=== PATIENT | male | born 1970 | race Two or more races ===

== ENCOUNTER 2019-02-04 11:56 | Inpatient (IN) | payer OTHER ==
--- NOTE | 2019-02-04 15:45 | HP ---
COWS - Scale Resting Pulse: 0= [place] 80 or Below Sweatin= No chills or Flushing Restless Observation: 1= Difficult to Sit Still Pupil Size: 1= Pupils >than Normal Bone or Joint Aches: 1= Mild Discomfort Runny Nose/ Eye Tearin= Runny Nose/Eyes GI Upset > 30mins: 0= None Tremor Observation: 1= Tremor [place], Not Seen Yawning Observation: 1= 1-2x During Session Anxiety or Irritability: 2=Irritable/Anxious Goose Flesh Skin: 0=Smooth Skin COWS Score: 9 CIWA Score Nausea/Vomitin-No Nausea/No Vomiting Muscle Tremors: 1-None Visible, but [place] Anxiety: 3 Agitation: 0-Normal Activity Paroxysmal Sweats: 2 Orientation: 1-Uncertain about Date Tacttile Disturbances: 1-Very Mild Itch/Numbness Auditory Disturbances: 0-None Visual Disturbances: 0-None Headache: 0-None Present CIWA-Ar Total Score: 8 - Admission Criteria OAS Guidelines: Admission for Medically Managed Detox: Requires at least one of the followin. CIWA greater than 12 2. Seizures within the past 24 hours 3. Delirium tremens within the past 24 hours 4. Hallucinations within the past 24 hours 5. Acute intervention needed for co occurring medical disorder 6. Acute intervention needed for co occurring psychiatric disorder 7. Severe withdrawal that cannot be handled at a lower level of care (continued vomiting, continued diarrhea, abnormal vital signs) requiring intravenous medication and/or fluids 8. Patient presents the following: Acute intervention needed for co-occurring med or psych disorder Admission Criteria Met: Admission criteria met Admission ROS [facility] Chief Complaint: " I relapse, I want detox and go back to my program" Allergies/Adverse Reactions: Allergies Allergy/AdvReac Type Severity Reaction Status Date / Time No Known Allergies Allergy Verified 02/04/19 14:25 History of Present Illness: 48 yo male with hx of nicotine, heroin (nasal), cocaine and alcohol dependence is here seeking detox d/t relapse, self referred. Last detox [facility] two years. Reports was MAT suboxone for about six months and relapse four months ago. Longest period of sobriety three years. PMHX: HDL. Psych : anxiety and depression reports tx with seroquel, non-adherent with meds. Denies suicidal / homicidal ideation. Denies hx of seizures, overdose or blackouts. Others' Prescriptions Patient Name: Colton Smith Date: 1970 Address: [address] [place] [address] Sex: Male Rx Written Rx Dispensed Drug Quantity Days Supply Prescriber Name 09/11/2018 09/11/2018 suboxone 8 mg-2 mg sl film 60 30 Yousuf Garcia MD 08/14/2018 08/14/2018 suboxone 8 mg-2 mg sl film 60 30 RadhaYousuf manzanares MD 07/17/2018 07/17/2018 suboxone 8 mg-2 mg sl film 60 30 RadhaYousuf tolbert MD 06/19/2018 06/19/2018 suboxone 8 mg-2 mg sl film 60 30 RadhaYousuf tolbert MD 05/22/2018 05/22/2018 suboxone 8 mg-2 mg sl film 60 30 RadhaYousuf tolbert MD 04/24/2018 04/24/2018 suboxone 8 mg-2 mg sl film 60 30 RadhaYousuf tolbert MD 03/25/2018 03/25/2018 suboxone 8 mg-2 mg sl film 60 30 RadhaYousuf tolbert MD 02/13/2018 02/21/2018 suboxone 8 mg-2 mg sl film 60 30 RadhaYousuf tolbert MD Exam Limitations: No Limitations - Ebola screening Have you traveled outside of the country in the last 21 days: No Have you had contact with anyone from an Ebola affected area: No Do you have a fever: No - Review of Systems Constitutional: Chills, Diaphoresis, Loss of Appetite, Changes in sleep, Unintentional Wgt. Loss (10 -15 lbs) EENT: reports: Nose Congestion (runny / nose) Respiratory: reports: No Symptoms reported Cardiac: reports: No Symptoms Reported GI: reports: Constipated (last DM two days ago), Poor Appetite, Poor Fluid Intake : reports: No Symptoms Reported Musculoskeletal: reports: Back Pain, Joint Pain Integumentary: reports: Dryness Neuro: reports: Tingling Endocrine: reports: Increased Thirst Hematology: reports: No Symptoms Reported Psychiatric: reports: Orientated x3, Depressed (lost job and drug use) Other Systems: Reviewed and Negative Patient History - Patient Medical History Hx Anemia: No Hx Asthma: No Hx Chronic Obstructive Pulmonary Disease (COPD): No Hx Cancer: No Hx Cardiac Disorders: No Hx Congestive Heart Failure: No Hx Hypertension: No Hx Hypercholesterolemia: Yes (no meds ) Hx Pacemaker: No HX Cerebrovascular Accident: No Hx Seizures: No Hx Dementia: No Hx Diabetes: No Hx Gastrointestinal Disorders: No Hx Liver Disease: No Hx Genitourinary Disorders: No Hx Sexually Transmitted Disorders: No Hx Renal Disease (ESRD): No Hx Thyroid Disease: No Hx Human Immunodeficiency Virus (HIV): No Hx Hepatitis C: No Hx Depression: Yes Hx Suicide Attempt: No Hx Bipolar Disorder: No Hx Schizophrenia: No - Patient Surgical History Past Surgical History: No Hx Neurologic Surgery: No Hx Cataract Extraction: No Hx Cardiac Surgery: No Hx Lung Surgery: No Hx Breast Surgery: No Hx Breast Biopsy: No Hx Abdominal Surgery: No Hx Appendectomy: No Hx Cholecystectomy: No Hx Genitourinary Surgery: No Hx Section: No Hx Orthopedic Surgery: No Anesthesia Reaction: No - PPD History Previous Implant?: No Documented Results: Negative w/o proof Date: 09/01/13 Results: 0 mm PPD to be Administered?: Yes - Smoking Cessation Smoking history: Current every day smoker Have you smoked in the past 12 months: Yes Aproximately how many cigarettes per day: 20 Cigars Per Day: 0 Hx Chewing Tobacco Use: No Initiated information on smoking cessation: Yes 'Breaking Loose' booklet given: 02/04/19 - Substance & Tx. History Hx Alcohol Use: Yes Hx Substance Use: Yes Substance Use Type: Alcohol, Cocaine, Heroin, Marijuana Hx Substance Use Treatment: Yes (Last detox [facility] two years) - Substances abused Heroin Substance route: Inhalation Frequency: Daily Amount used: 1 bundle Age of first use: 15 Date of last use: 02/04/19 Alcohol Substance route: Oral Frequency: Daily Amount used: 2 pt. rum + 2 quarts beer ( 40 oz bottles). Age of first use: 15 Date of last use: 02/03/19 Cocaine Substance route: Smoking Frequency: Daily Amount used: $50 -60 Age of first use: 15 Date of last use: 02/03/19 Marijuana/Hashish Substance route: Smoking Frequency: Daily Amount used: $10 Age of first use: 14 Date of last use: 02/03/19 Family Disease History - Family Disease History Family Disease History: Other: Father (alcoholism ), Mother (alcohol ) Admission Physical Exam [facility] - Vital Signs Vital Signs: Vital Signs - 24 hr 02/04/19 14:22 Temperature 98.2 F Pulse Rate 52 L Respiratory 18 Rate Blood Pressure 102/67 - Physical General Appearance: Yes: Appropriately Dressed, Thin, Sweating, Anxious HEENTM: Yes: EOMI, Hearing grossly Normal, Normal ENT Inspection, Pharynx Normal , Rhinorrhea, Other (pupil = 4mm) Respiratory: Yes: Chest Non-Tender, Lungs Clear, Normal Breath Sounds, No Respiratory Distress, No Accessory Muscle Use Neck: Yes: Within Normal Limits Breast: Yes: Breast Exam Deferred Cardiology: Yes: Regular Rhythm, Regular Rate Musculoskeletal: Yes: Back pain - Diagnostic (1) Cannabis dependence Current Visit: Yes Status: Acute (2) Alcohol dependence with uncomplicated withdrawal Current Visit: Yes Status: Acute (3) Opioid dependence with withdrawal Current Visit: Yes Status: Acute (4) Back pain Current Visit: Yes Status: Acute Qualifiers: Back pain location: low back pain Chronicity: acute Back pain laterality : midline (5) Cocaine dependence Current Visit: Yes Status: Active Cleared for Admission [facility] - Detox or Rehab [facility] Level of Care: Medically Managed Detox Regimen/Protocol: Methadone/Librium Breathalyzer - Breathalyzer Breathalyzer: 0 Urine Drug Screen - Test Device Lot number: [id number] Expiration date: 01/31/20 - Control Is test valid?: Yes - Results Drug screen NEGATIVE: No Urine drug screen results: THC-Marijuana, BRIJESH-Cocaine, FEN-Fentanyl, MOP-Opiates Inpatient Rehab Admission - Rehab Decision to Admit Inpatient rehab admission?: No
[2019-02-04] MEDS ORDERED: MAGNESIUM CITRATE 300 ML BOTTLE PO PRN (16:08)
[2019-02-04] MEDS ORDERED: MENTHOL/PHENOL 1 EACH UD MM PRN (16:08)
[2019-02-04] MEDS ORDERED: MAG HYDROX/AL HYDROX/SIMETH 30 ML UNIT-DOSE CUP PO PRN (16:08)
[2019-02-04] MEDS ORDERED: MAGNESIUM HYDROX 2400MG/30ML ORAL SUSPENSION 30 ML CUP PO PRN (16:08)
[2019-02-04] MEDS ORDERED: IBUPROFEN 400 MG TABLET (FP) PO PRN (16:08)
[2019-02-04] MEDS ORDERED: BISMUTH SUBSALICYLATE 524 MG/30 ML UD PO PRN (16:08)
[2019-02-04] MEDS ORDERED: NICOTINE POLACRILEX 2 MG GUM BUC PRN (16:08)
[2019-02-04] MEDS ORDERED: ACETAMINOPHEN 325 MG TABLET (FP) PO PRN ×2 (16:08)
[2019-02-04] MEDS: chlordiazePOXIDE HCL 10 MG CAPSULE PO PRN (18:15)
[2019-02-04] MEDS: THIAMINE HCL 100 MG TABLET (FP) PO SCH (22:11)
[2019-02-04] MEDS: chlordiazePOXIDE HCL 25 MG CAPSULE PO SCH (22:11)
[2019-02-04] MEDS: MELATONIN 5 MG TABLETS PO PRN (22:12)
[2019-02-04] MEDS ORDERED: METHADONE HCL 10 MG TABLET (FOR DETOX USE ONLY) PO ONE (23:00)
[2019-02-04 23:30] LABS: EPI CELLS 1.7 /HPF (0-5); PH,URINE 5.5 (5.0-8.0); URINE APPEARANCE CLEAR; URINE BACTERIA 1.7 /hpf (NEGATIVE); URINE BILIRUBIN NEGATIVE (NEGATIVE); URINE CASTS 3 /hpf (0-8); URINE COLOR YELLOW; URINE GLUCOSE (UA) NEGATIVE (NEGATIVE); URINE KETONE NEGATIVE (NEGATIVE); URINE LEUK ESTERASE 1+ (NEGATIVE); URINE NITRITE NEGATIVE (NEGATIVE); URINE PROTEIN NEGATIVE (NEGATIVE); URINE RBC 1 /hpf (0-4); URINE WBC 17 /hpf (0-5)
[2019-02-05] MEDS: chlordiazePOXIDE HCL 25 MG CAPSULE PO SCH ×2 (05:53→14:58)
[2019-02-05] MEDS ORDERED: METHADONE HCL 5 MG TABLET (FOR DETOX USE ONLY) PO ONE (10:00)
[2019-02-05] MEDS: PRENATAL VITAMINS W/ FOLIC ACID TABLET (FP) PO SCH (10:04)
[2019-02-05] MEDS: NICOTINE 21 MG/24 HOURS TOPICAL PATCH TD SCH (10:05)
[2019-02-05] MEDS: chlordiazePOXIDE HCL 10 MG CAPSULE PO PRN ×2 (10:08→23:34)
[2019-02-05 10:24] LABS: HEMATOCRIT 43.5 % (35.4-49); HEMOGLOBIN 14.5 GM/dL (11.7-16.9); MCH 29.6 pg (25.7-33.7); MCHC 33.3 g/dl (32.0-35.9); MEAN CELL VOLUME 88.9 fl (80-96); MEAN PLT VOLUME 9.6 fl (7.5-11.1); PLATELET COUNT 190 K/MM3 (134-434); RBC 4.89 M/mm3 (4.00-5.60); RDW 13.8 % (11.9-15.9)
[2019-02-05 10:35] LABS: ALBUMIN 3.8 g/dl (3.4-5.0); ALK PHOS 49 U/L (45-117); ANION GAP 3 MMOL/L (8-16); BILIRUBIN,TOTAL 0.3 mg/dL (0.2-1); BLOOD UREA NITROGEN 15 mg/dL (7-18); CHLORIDE 106 mmol/L (98-107); CO2 31 mmol/L (21-32); GLUCOSE,RANDOM 94 mg/dL (74-106); POTASSIUM 4.1 mmol/L (3.5-5.1); SGOT/AST 10 U/L (15-37); SGPT/ALT 18 U/L (13-61); SODIUM 140 mmol/L (136-145); TOT PROT 6.6 g/dl (6.4-8.2)
--- NOTE | 2019-02-05 11:35 | CONSULT ---
[facility] Psychiatric Consult - Data Date of interview: 02/05/19 Admission source: [facility] Identifying data: Readmission to [facility] for this 48 y/o male self- referred for detoxification treatment (heroin, alcohol, cannabis). Examined on 3 . patient is , no children, domiciled, unemployed and supported on welfare. Substance Abuse History: Confirmed by the patient in this session. Details in current [facility] report : Smoking history: Current every day smoker. Have you smoked in the past 12 months: Yes. Aproximately how many cigarettes per day: 20. Cigars Per Day: 0. Hx Chewing Tobacco Use: No. Initiated information on smoking cessation: Yes. 'Breaking Loose' booklet given: 02/04/19. - Substance & Tx. History. Hx Alcohol Use: Yes. Hx Substance Use: Yes. Substance Use Type : Alcohol, Cocaine, Heroin, Marijuana. Hx Substance Use Treatment: Yes (Last detox [facility] two years). - Substances abused. Heroin. Substance route: Inhalation. Frequency: Daily. Amount used: 1 bundle. Age of first use: 15. Date of last use: 02/04/19. Alcohol. Substance route: Oral. Frequency: Daily. Amount used: 2 pt. rum + 2 quarts beer ( 40 oz bottles). Age of first use: 15. Date of last use: 02/03/19. Cocaine. Substance route: Smoking. Frequency: Daily. Amount used: $50 -60. Age of first use: 15. Date of last use: 02/03/19. Marijuana/Hashish. Substance route: Smoking. Frequency: Daily. Amount used: $10. Age of first use: 14. Date of last use: 02/03/19. F Medical History: Dyslipidemia. Psychiatric History: Patient denies history of psychiatric hospitalizations. According to records, it appears that this patient started seeing a psychiatrist , as a child, to address behavioral disturbances. Diagnosed initially with ADHD and treated, during childhood, with psychostimulants or seroquel (patient is not sure). Mr Smith reports that, years ago, he went to [facility] for substance abuse treatment and got diagnosed with MDD and Anxiety Disorder. At the time, the patient was reportedly medicated with seroquel 200 mg/hs. Last taken in August 2018. Lost to follow-up until this [facility] visit. Patient denies history of suicide attempts. Physical/Sexual Abuse/Trauma History: Patient denies. Additional Comment: Urine drug screen results: THC-Marijuana, BRIJESH-Cocaine, FEN- Fentanyl, MOP-Opiates. Noted. Mental Status Exam - Mental Status Exam Alert and Oriented to: Time, Place, Person Cognitive Function: Good Patient Appearance: Well Groomed Mood: Nervous, Withdrawn, Anxious Affect: Mood Congruent, Constricted Patient Behavior: Fatigued, Appropriate, Cooperative Speech Pattern: Clear, Appropriate Voice Loudness: Normal Thought Process: Intact, Goal Oriented Thought Disorder: Not Present Hallucinations: Denies Suicidal Ideation: Denies Homicidal Ideation: Denies Insight/Judgement: Poor Sleep: Poorly, Difficulty falling asleep Appetite: Good Muscle strength/Tone: Normal Gait/Station: Normal Psychiatric Findings - Problem List ([place] 1, 2,3) (1) Alcohol dependence with uncomplicated withdrawal Current Visit: Yes Status: Acute (2) Opioid dependence with withdrawal Current Visit: Yes Status: Acute (3) Cocaine dependence Current Visit: Yes Status: Chronic (4) Cannabis dependence Current Visit: Yes Status: Chronic (5) Nicotine dependence Current Visit: Yes Status: Chronic (6) Substance induced mood disorder Current Visit: Yes Status: Chronic (7) Insomnia Current Visit: Yes Status: Chronic (8) Non-compliance Current Visit: Yes Status: Chronic - Initial Treatment Plan Initial Treatment Plan: Psychoeducation. Sleep hygiene. Detoxification in progress. Support. AA/NA meetings. Groups. Seroquel 50 mg po hs (patient's specific request). Side effects/benefits discussed with the patient. Consent ( verbal) granted to MD. Dolan.
--- NOTE | 2019-02-05 12:24 | EKG ---
Test Reason : Blood Pressure : / mmHG Vent. Rate : 047 BPM Atrial Rate : 047 BPM P-R Int : 156 ms QRS Dur : 090 ms QT Int : 430 ms P-R-T Axes : 071 061 056 degrees QTc Int : 380 ms SINUS BRADYCARDIA OTHERWISE NORMAL ECG NO PREVIOUS ECGS AVAILABLE Confirmed by ROSA CARDOZA, JULIA ([id number]) on 02/05/2019 12:24:50 PM Referred By: Confirmed By:JULIA LEE MD
--- NOTE | 2019-02-05 17:06 | PN ---
S CIWA - CIWA Score Nausea/Vomitin-No Nausea/No Vomiting Muscle Tremors: None Anxiety: 3 Agitation: 2 Paroxysmal Sweats: 3 Orientation: 0-Oriented Tacttile Disturbances: 0-None Auditory Disturbances: 1-Very Mild Visual Disturbances: 3-Moderate Sensitivity Headache: 0-None Present CIWA-Ar Total Score: 12 BHS COWS - Scale Resting Pulse: 1= [place] 81-100 Sweatin= Chills/Flushing Restless Observation: 1= Difficult to Sit Still Pupil Size: 0= Normal to Room Light Bone or Joint Aches: 2= Severe Diffuse Aches Runny Nose/ Eye Tearin= None GI Upset > 30mins: 0= None Tremor Observation of Outstretched Hands: 0= None Yawning Observation: 1= 1-2x During Session Anxiety or Irritability: 2=Irritable/Anxious Goose Flesh Skin: 3=Piloerection COWS Score: 11 S Progress Note (SOAP) Subjective: Sweating, Body Aches, Constipation. Objective: PATIENT A & O X 3, OBSERVED AMBULATING ON UNIT. IN NO ACUTE DISTRESS. 02/05/19 17:05 Vital Signs Temperature 98.2 F 02/05/19 14:31 Pulse Rate 53 L 02/05/19 14:31 Respiratory Rate 18 02/05/19 14:31 Blood Pressure 109/67 02/05/19 14:31 O2 Sat by Pulse Oximetry (%) Laboratory Tests 02/04/19 02/05/19 02/05/19 18:50 07:00 07:00 WBC 4.0 RBC 4.89 Hgb 14.5 Hct 43.5 MCV 88.9 MCH 29.6 MCHC 33.3 RDW 13.8 Plt Count 190 MPV 9.6 Sodium 140 Potassium 4.1 Chloride 106 Carbon Dioxide 31 Anion Gap 3 L BUN 15 Creatinine 1.0 Creat Clearance w eGFR 79.09 Random Glucose 94 Calcium 9.0 Total Bilirubin 0.3 AST 10 L ALT 18 Alkaline Phosphatase 49 Total Protein 6.6 Albumin 3.8 Urine Color Yellow Urine Appearance Clear Urine pH 5.5 Ur Specific [place] 1.023 Urine Protein Negative Urine Glucose (UA) Negative Urine Ketones Negative Urine Blood Negative Urine Nitrite Negative Urine Bilirubin Negative Urine Urobilinogen 1.0 Ur Leukocyte Esterase 1+ H Urine WBC (Auto) 17 Urine RBC (Auto) 1 Urine Casts (Auto) 3 U Epithel Cells (Auto) 1.7 Urine Bacteria (Auto) 1.7 RPR Titer HIV 1&2 Antibody Screen HIV P24 Antigen 02/05/19 02/05/19 07:00 07:00 WBC RBC Hgb Hct MCV MCH MCHC RDW Plt Count MPV Sodium Potassium Chloride Carbon Dioxide Anion Gap BUN Creatinine Creat Clearance w eGFR Random Glucose Calcium Total Bilirubin AST ALT Alkaline Phosphatase Total Protein Albumin Urine Color Urine Appearance Urine pH Ur Specific [place] Urine Protein Urine Glucose (UA) Urine Ketones Urine Blood Urine Nitrite Urine Bilirubin Urine Urobilinogen Ur Leukocyte Esterase Urine WBC (Auto) Urine RBC (Auto) Urine Casts (Auto) U Epithel Cells (Auto) Urine Bacteria (Auto) RPR Titer Nonreactive HIV 1&2 Antibody Screen Negative HIV P24 Antigen Negative LABS NOTED. Assessment: 02/05/19 17:05 WITHDRAWAL SYMPTOMS. Plan: CONTINUE DETOX. INCREASE DAILY PO FLUID INTAKE.
[2019-02-05] MEDS: chlordiazePOXIDE 5 MG CAPSULE PO SCH (21:16)
[2019-02-05] MEDS: QUEtiapine FUMARATE 50 MG TABLET PO SCH (22:16)
[2019-02-05] MEDS: THIAMINE HCL 100 MG TABLET (FP) PO SCH (22:16)
[2019-02-05] MEDS: MELATONIN 5 MG TABLETS PO PRN (23:34)
[2019-02-05] MEDS: METHOCARBAMOL 500 MG TABLET PO PRN (23:34)
[2019-02-05] MEDS: cloNIDine HCL 0.1 MG TABLET PO PRN (23:35)
--- NOTE | 2019-02-06 00:01 | PN ---
BHS Progress Note Note: SEEN FOR C/O WORSENING WITHDRAWAL SX'S. C/O IRRITABILITY, SHAKES, SWEATS, RESTLESSNESS. "IM DOPE SICK" Last Vital Signs Temp Pulse Resp BP Pulse Ox 97.3 F L 58 L 18 114/69 02/05/19 22:24 02/05/19 22:24 02/05/19 22:24 02/05/19 22:24 CLIENT AWAKE /ALERT PACING UNIT, YELLING, RESTLESS, IRRITABLE PERRLA A- WITHDRAWAL SX'S P- METHADONE 5 MG PO NOW X 1 CONT TO MONITOR CLINICALLY
[2019-02-06] MEDS ORDERED: METHADONE HCL 5 MG TABLET (FOR DETOX USE ONLY) PO ONE (00:15)
[2019-02-06] MEDS: chlordiazePOXIDE 5 MG CAPSULE PO SCH ×2 (05:27→14:44)
[2019-02-06] MEDS ORDERED: METHADONE HCL 10 MG TABLET (FOR DETOX USE ONLY) PO ONE (10:00)
[2019-02-06] MEDS: METHOCARBAMOL 500 MG TABLET PO PRN (10:04)
[2019-02-06] MEDS: cloNIDine HCL 0.1 MG TABLET PO PRN (10:04)
[2019-02-06] MEDS: NICOTINE 21 MG/24 HOURS TOPICAL PATCH TD SCH (10:04)
[2019-02-06] MEDS: PRENATAL VITAMINS W/ FOLIC ACID TABLET (FP) PO SCH (10:04)
--- NOTE | 2019-02-06 16:03 | PN ---
S CIWA - CIWA Score Nausea/Vomitin-No Nausea/No Vomiting Muscle Tremors: None Anxiety: 4-Mod. Anxious/Guarded Agitation: 3 Paroxysmal Sweats: 3 Orientation: 0-Oriented Tacttile Disturbances: 2-Mild Itch/Numbness/Burn Auditory Disturbances: 0-None Visual Disturbances: 2-Mild Sensitivity Headache: 0-None Present CIWA-Ar Total Score: 14 S COWS - Scale Resting Pulse: 0= [place] 80 or Below Sweatin= Chills/Flushing Restless Observation: 1= Difficult to Sit Still Pupil Size: 0= Normal to Room Light Bone or Joint Aches: 2= Severe Diffuse Aches Runny Nose/ Eye Tearin= None GI Upset > 30mins: 0= None Tremor Observation of Outstretched Hands: 0= None Yawning Observation: 1= 1-2x During Session Anxiety or Irritability: 4=Extreme Anxiety Goose Flesh Skin: 3=Piloerection COWS Score: 12 S Progress Note (SOAP) Subjective: Sweating, Body Aches, Anxious, Restless. Objective: PATIENT A & O X 3, OBSERVED AMBULATING ON UNIT. IN NO ACUTE DISTRESS. 02/06/19 16:01 Vital Signs Temperature 98.7 F 02/06/19 13:38 Pulse Rate 59 L 02/06/19 13:38 Respiratory Rate 18 02/06/19 13:38 Blood Pressure 100/65 02/06/19 13:38 O2 Sat by Pulse Oximetry (%) Laboratory Tests 02/04/19 02/05/19 02/05/19 18:50 07:00 07:00 WBC 4.0 RBC 4.89 Hgb 14.5 Hct 43.5 MCV 88.9 MCH 29.6 MCHC 33.3 RDW 13.8 Plt Count 190 MPV 9.6 Sodium 140 Potassium 4.1 Chloride 106 Carbon Dioxide 31 Anion Gap 3 L BUN 15 Creatinine 1.0 Creat Clearance w eGFR 79.09 Random Glucose 94 Calcium 9.0 Total Bilirubin 0.3 AST 10 L ALT 18 Alkaline Phosphatase 49 Total Protein 6.6 Albumin 3.8 Urine Color Yellow Urine Appearance Clear Urine pH 5.[address] [place] 1.023 Urine Protein Negative Urine Glucose (UA) Negative Urine Ketones Negative Urine Blood Negative Urine Nitrite Negative Urine Bilirubin Negative Urine Urobilinogen 1.0 Ur Leukocyte Esterase 1+ H Urine WBC (Auto) 17 Urine RBC (Auto) 1 Urine Casts (Auto) 3 U Epithel Cells (Auto) 1.7 Urine Bacteria (Auto) 1.7 RPR Titer HIV 1&2 Antibody Screen HIV P24 Antigen 02/05/19 02/05/19 07:00 07:00 WBC RBC Hgb Hct MCV MCH MCHC RDW Plt Count MPV Sodium Potassium Chloride Carbon Dioxide Anion Gap BUN Creatinine Creat Clearance w eGFR Random Glucose Calcium Total Bilirubin AST ALT Alkaline Phosphatase Total Protein Albumin Urine Color Urine Appearance Urine pH Ur Specific [place] Urine Protein Urine Glucose (UA) Urine Ketones Urine Blood Urine Nitrite Urine Bilirubin Urine Urobilinogen Ur Leukocyte Esterase Urine WBC (Auto) Urine RBC (Auto) Urine Casts (Auto) U Epithel Cells (Auto) Urine Bacteria (Auto) RPR Titer Nonreactive HIV 1&2 Antibody Screen Negative HIV P24 Antigen Negative LABS NOTED. Assessment: 02/06/19 16:01 WITHDRAWAL SYMPTOMS. Plan: CONTINUE DETOX. INCREASE DAILY PO FLUID INTAKE. PRN ROBAXIN FOR BODY ACHES / MUSCLE SPASMS. DUE TO SEVERITY OF WITHDRAWAL SYMPTOMS, PATIENT GRANTED ADDITIONAL DAY FOR DETOX ADMISSION, SO THAT HE WILL BE DISCHARGED FROM DETOX UNIT ON 02/08/2019.
[2019-02-06] MEDS ORDERED: chlordiazePOXIDE HCL 10 MG CAPSULE PO PRN (21:00)
[2019-02-06] MEDS: chlordiazePOXIDE HCL 10 MG CAPSULE PO SCH (22:13)
[2019-02-06] MEDS: QUEtiapine FUMARATE 50 MG TABLET PO SCH (22:13)
[2019-02-06] MEDS: THIAMINE HCL 100 MG TABLET (FP) PO SCH (22:13)
[2019-02-07] MEDS: chlordiazePOXIDE HCL 10 MG CAPSULE PO SCH ×3 (05:21→22:16)
[2019-02-07] MEDS ORDERED: METHADONE HCL 5 MG TABLET (FOR DETOX USE ONLY) PO ONE (06:00)
[2019-02-07] MEDS ORDERED: METHADONE HCL 10 MG TABLET (FOR DETOX USE ONLY) PO ONE (10:00)
[2019-02-07] MEDS: PRENATAL VITAMINS W/ FOLIC ACID TABLET (FP) PO SCH (10:16)
[2019-02-07] MEDS: NICOTINE 21 MG/24 HOURS TOPICAL PATCH TD SCH (10:17)
--- NOTE | 2019-02-07 14:41 | PN ---
[facility] CIWA - CIWA Score Nausea/Vomitin-Mild Nausea/No Vomiting Muscle Tremors: 2 Anxiety: 2 Agitation: 2 Paroxysmal Sweats: 1-Minimal Palms Moist Orientation: 0-Oriented Tacttile Disturbances: 0-None Auditory Disturbances: 0-None Visual Disturbances: 0-None Headache: 1-Very Mild CIWA-Ar Total Score: 9 BHS COWS - Scale Resting Pulse: 0= [place] 80 or Below Sweatin= Chills/Flushing Restless Observation: 0= Sits Still Pupil Size: 0= Normal to Room Light Bone or Joint Aches: 1= Mild Discomfort Runny Nose/ Eye Tearin= Nasal Congestion GI Upset > 30mins: 1= Stomach Cramp Tremor Observation of Outstretched Hands: 1= Tremor [place], Not Seen Yawning Observation: 1= 1-2x During Session Anxiety or Irritability: 1=Feels Anxious/Irritable Goose Flesh Skin: 0=Smooth Skin COWS Score: 7 [facility] Progress Note (SOAP) Subjective: feeling better today had methadone and librium today resting on bed tolerated food well Objective: 02/07/19 14:42 Vital Signs Temperature 97.3 F L 02/07/19 09:59 Pulse Rate 57 L 02/07/19 09:59 Respiratory Rate 16 02/07/19 09:59 Blood Pressure 102/60 02/07/19 09:59 O2 Sat by Pulse Oximetry (%) Laboratory Last Values WBC 4.0 K/mm3 (4.0-10.0) 02/05/19 07:00 RBC 4.89 M/mm3 (4.00-5.60) 02/05/19 07:00 Hgb 14.5 GM/dL (11.7-16.9) 02/05/19 07:00 Hct 43.5 % (35.4-49) 02/05/19 07:00 MCV 88.9 fl (80-96) 02/05/19 07:00 MCH 29.6 pg (25.7-33.7) 02/05/19 07:00 MCHC 33.3 g/dl (32.0-35.9) 02/05/19 07:00 RDW 13.8 % (11.9-15.9) 02/05/19 07:00 Plt Count 190 K/MM3 (134-434) 02/05/19 07:00 MPV 9.6 fl (7.5-11.1) 02/05/19 07:00 Sodium 140 mmol/L (136-145) 02/05/19 07:00 Potassium 4.1 mmol/L (3.5-5.1) 02/05/19 07:00 Chloride 106 mmol/L (98-107) 02/05/19 07:00 Carbon Dioxide 31 mmol/L (21-32) 02/05/19 07:00 Anion Gap 3 MMOL/L (8-16) L 02/05/19 07:00 BUN 15 mg/dL (7-18) 02/05/19 07:00 Creatinine 1.0 mg/dL (0.55-1.3) 02/05/19 07:00 Creat Clearance w eGFR 79.09 (>60) 02/05/19 07:00 Random Glucose 94 mg/dL (74-106) 02/05/19 07:00 Calcium 9.0 mg/dL (8.5-10.1) 02/05/19 07:00 Total Bilirubin 0.3 mg/dL (0.2-1) 02/05/19 07:00 AST 10 U/L (15-37) L 02/05/19 07:00 ALT 18 U/L (13-61) 02/05/19 07:00 Alkaline Phosphatase 49 U/L (45-117) 02/05/19 07:00 Total Protein 6.6 g/dl (6.4-8.2) 02/05/19 07:00 Albumin 3.8 g/dl (3.4-5.0) 02/05/19 07:00 Urine Color Yellow 02/04/19 18:50 Urine Appearance Clear 02/04/19 18:50 Urine pH 5.5 (5.0-8.0) 02/04/19 18:50 Ur Specific [place] 1.023 (1.010-1.035) 02/04/19 18:50 Urine Protein Negative (NEGATIVE) 02/04/19 18:50 Urine Glucose (UA) Negative (NEGATIVE) 02/04/19 18:50 Urine Ketones Negative (NEGATIVE) 02/04/19 18:50 Urine Blood Negative (NEGATIVE) 02/04/19 18:50 Urine Nitrite Negative (NEGATIVE) 02/04/19 18:50 Urine Bilirubin Negative (NEGATIVE) 02/04/19 18:50 Urine Urobilinogen 1.0 mg/dL (0.2-1.0) 02/04/19 18:50 Ur Leukocyte Esterase 1+ (NEGATIVE) H 02/04/19 18:50 Urine WBC (Auto) 17 /hpf (0-5) 02/04/19 18:50 Urine RBC (Auto) 1 /hpf (0-4) 02/04/19 18:50 Urine Casts (Auto) 3 /hpf (0-8) 02/04/19 18:50 U Epithel Cells (Auto) 1.7 /HPF (0-5) 02/04/19 18:50 Urine Bacteria (Auto) 1.7 /hpf (NEGATIVE) 02/04/19 18:50 RPR Titer Nonreactive (NONREACTIVE) 02/05/19 07:00 HIV 1&2 Antibody Screen Negative 02/05/19 07:00 HIV P24 Antigen Negative 02/05/19 07:00 lab noted Assessment: 02/07/19 14:43 withdrawal sx Plan: continue detox
[2019-02-07] MEDS: QUEtiapine FUMARATE 50 MG TABLET PO SCH (22:16)
[2019-02-07] MEDS: MELATONIN 5 MG TABLETS PO PRN (22:16)
[2019-02-07] MEDS: THIAMINE HCL 100 MG TABLET (FP) PO SCH (22:16)
[2019-02-08] MEDS ORDERED: METHADONE HCL 5 MG TABLET (FOR DETOX USE ONLY) PO ONE (06:00)
[2019-02-08 09:25] VITALS: BP 101/63; PULSE 82; TEMP 97.3
[2019-02-08] MEDS: NICOTINE 21 MG/24 HOURS TOPICAL PATCH TD SCH (10:26)
[2019-02-08] MEDS: PRENATAL VITAMINS W/ FOLIC ACID TABLET (FP) PO SCH (10:27)
--- NOTE | 2019-02-08 14:54 | DS ---
[facility] Detox Discharge Summary Admission Date: 02/04/19 Discharge Date: 02/08/19 - History Present History: Alcohol Dependence, Opioid Dependence Additional Comments: 48 years old male admitted on 02/04/19 for alcohol and opiate withdrawal stabilization completed detox regimen aftercare [facility] Physical Exam Results Vital Signs: Vital Signs Temperature 97.3 F L 02/08/19 09:24 Pulse Rate 82 02/08/19 09:24 Respiratory Rate 18 02/08/19 09:24 Blood Pressure 101/63 02/08/19 09:24 O2 Sat by Pulse Oximetry (%) Pertinent Admission Physical Exam Findings: alcohol and opiate withdrawal sx Laboratory Last Values WBC 4.0 K/mm3 (4.0-10.0) 02/05/19 07:00 RBC 4.89 M/mm3 (4.00-5.60) 02/05/19 07:00 Hgb 14.5 GM/dL (11.7-16.9) 02/05/19 07:00 Hct 43.5 % (35.4-49) 02/05/19 07:00 MCV 88.9 fl (80-96) 02/05/19 07:00 MCH 29.6 pg (25.7-33.7) 02/05/19 07:00 MCHC 33.3 g/dl (32.0-35.9) 02/05/19 07:00 RDW 13.8 % (11.9-15.9) 02/05/19 07:00 Plt Count 190 K/MM3 (134-434) 02/05/19 07:00 MPV 9.6 fl (7.5-11.1) 02/05/19 07:00 Sodium 140 mmol/L (136-145) 02/05/19 07:00 Potassium 4.1 mmol/L (3.5-5.1) 02/05/19 07:00 Chloride 106 mmol/L (98-107) 02/05/19 07:00 Carbon Dioxide 31 mmol/L (21-32) 02/05/19 07:00 Anion Gap 3 MMOL/L (8-16) L 02/05/19 07:00 BUN 15 mg/dL (7-18) 02/05/19 07:00 Creatinine 1.0 mg/dL (0.55-1.3) 02/05/19 07:00 Creat Clearance w eGFR 79.09 (>60) 02/05/19 07:00 Random Glucose 94 mg/dL (74-106) 02/05/19 07:00 Calcium 9.0 mg/dL (8.5-10.1) 02/05/19 07:00 Total Bilirubin 0.3 mg/dL (0.2-1) 02/05/19 07:00 AST 10 U/L (15-37) L 02/05/19 07:00 ALT 18 U/L (13-61) 02/05/19 07:00 Alkaline Phosphatase 49 U/L (45-117) 02/05/19 07:00 Total Protein 6.6 g/dl (6.4-8.2) 02/05/19 07:00 Albumin 3.8 g/dl (3.4-5.0) 02/05/19 07:00 Urine Color Yellow 02/04/19 18:50 Urine Appearance Clear 02/04/19 18:50 Urine pH 5.5 (5.0-8.0) 02/04/19 18:50 Ur Specific [place] 1.023 (1.010-1.035) 02/04/19 18:50 Urine Protein Negative (NEGATIVE) 02/04/19 18:50 Urine Glucose (UA) Negative (NEGATIVE) 02/04/19 18:50 Urine Ketones Negative (NEGATIVE) 02/04/19 18:50 Urine Blood Negative (NEGATIVE) 02/04/19 18:50 Urine Nitrite Negative (NEGATIVE) 02/04/19 18:50 Urine Bilirubin Negative (NEGATIVE) 02/04/19 18:50 Urine Urobilinogen 1.0 mg/dL (0.2-1.0) 02/04/19 18:50 Ur Leukocyte Esterase 1+ (NEGATIVE) H 02/04/19 18:50 Urine WBC (Auto) 17 /hpf (0-5) 02/04/19 18:50 Urine RBC (Auto) 1 /hpf (0-4) 02/04/19 18:50 Urine Casts (Auto) 3 /hpf (0-8) 02/04/19 18:50 U Epithel Cells (Auto) 1.7 /HPF (0-5) 02/04/19 18:50 Urine Bacteria (Auto) 1.7 /hpf (NEGATIVE) 02/04/19 18:50 RPR Titer Nonreactive (NONREACTIVE) 02/05/19 07:00 HIV 1&2 Antibody Screen Negative 02/05/19 07:00 HIV P24 Antigen Negative 02/05/19 07:00 lab noted - Treatment Hospital Course: Detox Protocol Followed, Detoxed Safely, Responded well, Discharged Condition Good, Rehab Referral Accepted Patient has Accepted [facility] Referral [facility] - Medication Discharge Medications: Ambulatory Orders Quetiapine Fumarate [Seroquel -] 100 mg PO HS #30 tablet 10/27/13 - Diagnosis (1) Alcohol dependence with uncomplicated withdrawal Status: Acute (2) Opioid dependence with withdrawal Status: Acute (3) Nicotine dependence Status: Acute Qualifiers: Nicotine product type: cigarettes Substance use status: in withdrawal Qualified Code(s): F17.213 - Nicotine dependence, cigarettes, with withdrawal (4) Substance induced mood disorder Status: Suspected - AMA Did Patient Leave Against Medical Advice: No
[2019-02-08] MEDS ORDERED: QUEtiapine FUMARATE 100 MG TABLET (FP) PO SCH (22:00)
== END 2019-02-08 12:38 | disposition other institution (70) | DRG 773 ==
LOC: YASAS 11:56 → Y3N 16:46
PROVIDERS: ADMIT Surgery; ATTEND Surgery
PROC: HZ2ZZZZ Detoxification Services for Substance Abuse Treatment (ICD-10-PCS; principal; 2019-02-04)
DX: F11.23 Opioid dependence with withdrawal (principal); F10.230 Alcohol dependence with withdrawal, uncomplicated; F14.20 Cocaine dependence, uncomplicated; F12.20 Cannabis dependence, uncomplicated; F17.213 Nicotine dependence, cigarettes, with withdrawal; F19.24 Other psychoactive substance dependence with psychoactive substance-induced mood disorder; G47.00 Insomnia, unspecified; M54.5 Low back pain; Z91.19 Patient's noncompliance with other medical treatment and regimen
CPT/HCPCS: 36415; 80053; 81003; 85027; 86593; 87389; 93005; 93010; J0735

== ENCOUNTER 2019-02-08 12:49 | Inpatient (IN) | payer OTHER ==
[2019-02-08] MEDS ORDERED: MAGNESIUM CITRATE 300 ML BOTTLE PO PRN (14:49)
[2019-02-08] MEDS ORDERED: P-EPHED 60MG/TRIPROLIDI 2.5MG TABLET PO PRN (14:49)
[2019-02-08] MEDS ORDERED: guaiFENesin 200 MG/10 ML 10 ML UNIT-DOSE CUPS PO PRN (14:49)
[2019-02-08] MEDS ORDERED: MENTHOL/PHENOL 1 EACH UD MM PRN (14:49)
[2019-02-08] MEDS ORDERED: NICOTINE 14 MG/24 HOURS TOPICAL PATCH TD PRN (14:49)
[2019-02-08] MEDS ORDERED: LOPERAMIDE HCL 2 MG CAPSULE PO PRN (14:49)
[2019-02-08] MEDS ORDERED: MAG HYDROX/AL HYDROX/SIMETH 30 ML UNIT-DOSE CUP PO PRN (14:49)
[2019-02-08] MEDS ORDERED: MAGNESIUM HYDROX 2400MG/30ML ORAL SUSPENSION 30 ML CUP PO PRN (14:49)
--- NOTE | 2019-02-08 14:49 | HP ---
CARYL CARDOZA Rehab Assess/Revision - Admission History Admitted to Rehab from: [facility] Date of Admission to Rehab: 02/08/19 - Findings Detox History & Physical reviewed: Yes Concur with findings: Yes Comments/Additional Findings: transferred from detox to rehab admission as per protocol Inpatient Rehab Admission - Rehab Decision to Admit Inpatient rehab admission?: Yes - Initial Determination Are CD services needed?: Yes Free of communicable disease: Yes Not in need of hospitalization: Yes - Rehab Admission Criteria Previous failed treatment: Yes Poor recovery environment: Yes Comorbidities: Yes Lacks judgement: No Patient is meeting Inpatient Rehab admission criteria:: Yes
[2019-02-08] MEDS: QUEtiapine FUMARATE 100 MG TABLET (FP) PO SCH (21:52)
[2019-02-08] MEDS: THIAMINE HCL 100 MG TABLET (FP) PO SCH (21:53)
[2019-02-08] MEDS ORDERED: MELATONIN 5 MG TABLETS PO PRN (22:00)
[2019-02-09] MEDS: IBUPROFEN 400 MG TABLET (FP) PO PRN ×2 (01:17→21:48)
--- NOTE | 2019-02-09 10:38 | PN ---
S COWS - Scale Resting Pulse: 0= [place] 80 or Below Sweatin= Chills/Flushing Restless Observation: 3= Extraneous Movement Pupil Size: 0= Normal to Room Light Bone or Joint Aches: 4=Acute Joint/Muscle Pain Runny Nose/ Eye Tearin= None GI Upset > 30mins: 0= None Tremor Observation of Outstretched Hands: 0= None Yawning Observation: 1= 1-2x During Session Anxiety or Irritability: 2=Irritable/Anxious Goose Flesh Skin: 0=Smooth Skin COWS Score: 11 BHS Progress Note (SOAP) Subjective: PT IS A 48 Y/O MALE WHO DETOXED ON [facility] FROM 02/04/19 TO 02/08/19 AND REFERRED HERE TO REHAB. PT REPORTS HE WAS ON SUBOXONE 8 MG/2MG SL 2 FILMS DAILY SEEN BELOW FROM PNP(SEE DETOX H/P). PT REPORTS HE RELAPSED AND DID NOT GO BACK TO HIS DOCTOR BUT NOW DESIRES TO GET BACK ON IT. MEANWHILE PT IS C/O W/S BACK AND BODY ACHES,HOT/COLD SWEATS,YAWNING, IRRITABILITY,DECREASED SLEEP. Others' Prescriptions Patient Name: Colton Smith Date: 1970 Address: [address] [place] [address] Sex: Male Rx Written Rx Dispensed Drug Quantity Days Supply Prescriber Name 09/11/2018 09/11/2018 suboxone 8 mg-2 mg sl film 60 30 Yousuf Little MD 08/14/2018 08/14/2018 suboxone 8 mg-2 mg sl film 60 30 Yousuf Little MD 07/17/2018 07/17/2018 suboxone 8 mg-2 mg sl film 60 30 Yousuf Little MD 06/19/2018 06/19/2018 suboxone 8 mg-2 mg sl film 60 30 Yousuf Little MD 05/22/2018 05/22/2018 suboxone 8 mg-2 mg sl film 60 30 Yousuf Little MD 04/24/2018 04/24/2018 suboxone 8 mg-2 mg sl film 60 30 Yousuf Little MD 03/25/2018 03/25/2018 suboxone 8 mg-2 mg sl film 60 30 Yousuf Little MD 02/13/2018 02/21/2018 suboxone 8 mg-2 mg sl film 60 30 Yousuf Little MD Objective: 02/09/19 10:38 Vital Signs - 24 hr 02/08/19 02/09/19 15:39 06:48 Temperature 98.1 F 98.2 F Pulse Rate 68 62 Respiratory 18 18 Rate Blood Pressure 119/61 98/63 COWS= 11 Assessment: 02/09/19 10:45 RESIDUAL WITHDRAWAL SX Plan: DISCUSSED WITH PATIENT WILL DO URINE DRUG TEST FOR OPIATE CLEARANCE BEFORE STARTING ON SUBOXONE. PT WILL MEET WITH COUNSELOR TO ARRANGE FOR AFTERCARE REFERRAL SITE(PT STATES HE WILL LIKE TO GO BACK TO [facility] WITH DR. YOUSUF LITTLE. FLEXERIL 10 MG PO TID PRN INCREASE PO FLUIDS. PT IS AGREEABLE TO POC.
[2019-02-09] MEDS: PRENATAL VITAMINS W/ FOLIC ACID TABLET (FP) PO SCH (10:45)
[2019-02-09] MEDS: CYCLOBENZAPRINE HCL 10 MG TABLET (FP) PO SCH ×2 (14:32→21:48)
[2019-02-09] MEDS: QUEtiapine FUMARATE 100 MG TABLET (FP) PO SCH (21:48)
[2019-02-09] MEDS: THIAMINE HCL 100 MG TABLET (FP) PO SCH (21:48)
[2019-02-10] MEDS: CYCLOBENZAPRINE HCL 10 MG TABLET (FP) PO SCH ×3 (06:56→21:08)
[2019-02-10] MEDS: PRENATAL VITAMINS W/ FOLIC ACID TABLET (FP) PO SCH (10:52)
[2019-02-10] MEDS: IBUPROFEN 400 MG TABLET (FP) PO PRN (11:06)
[2019-02-10 16:31] LABS: EPI CELLS 0.8 /HPF (0-5/HPF); PH,URINE >= 9.0 (5.0-8.0); URINE APPEARANCE CLEAR; URINE BACTERIA 2.5 /hpf (NEGATIVE); URINE BILIRUBIN NEGATIVE (NEGATIVE); URINE CASTS 0 /hpf (0-8); URINE COLOR YELLOW; URINE GLUCOSE (UA) NEGATIVE (NEGATIVE); URINE KETONE NEGATIVE (NEGATIVE); URINE LEUK ESTERASE TRACE (NEGATIVE); URINE NITRITE NEGATIVE (NEGATIVE); URINE PROTEIN NEGATIVE (NEGATIVE); URINE RBC 1 /hpf (0-4); URINE UROBILINOGEN 0.2 mg/dL (0.2-1.0); URINE WBC 9 /hpf (0-5)
[2019-02-10] MEDS: THIAMINE HCL 100 MG TABLET (FP) PO SCH (21:08)
[2019-02-10] MEDS: QUEtiapine FUMARATE 100 MG TABLET (FP) PO SCH (21:09)
[2019-02-11] MEDS: CYCLOBENZAPRINE HCL 10 MG TABLET (FP) PO SCH ×3 (06:14→21:51)
[2019-02-11] MEDS: PRENATAL VITAMINS W/ FOLIC ACID TABLET (FP) PO SCH (10:11)
[2019-02-11] MEDS: IBUPROFEN 400 MG TABLET (FP) PO PRN ×2 (10:12→21:51)
--- NOTE | 2019-02-11 11:25 | PN ---
S Progress Note Note: UDS FOR MAT DONE TODAY: (+)MTD AND (+)BZO WILL REPEAT UDS ON 02/12/19
[2019-02-11] MEDS: THIAMINE HCL 100 MG TABLET (FP) PO SCH (21:51)
[2019-02-11] MEDS: QUEtiapine FUMARATE 100 MG TABLET (FP) PO SCH (21:52)
[2019-02-12] MEDS: CYCLOBENZAPRINE HCL 10 MG TABLET (FP) PO SCH ×3 (06:20→21:53)
[2019-02-12] MEDS: ACETAMINOPHEN 325 MG TABLET (FP) PO PRN ×2 (06:21→11:09)
[2019-02-12] MEDS: PRENATAL VITAMINS W/ FOLIC ACID TABLET (FP) PO SCH (11:08)
--- NOTE | 2019-02-12 13:03 | PN ---
BHS COWS - Scale Resting Pulse: 0= [place] 80 or Below Sweatin= Chills/Flushing Restless Observation: 3= Extraneous Movement Pupil Size: 0= Normal to Room Light Bone or Joint Aches: 4=Acute Joint/Muscle Pain Runny Nose/ Eye Tearin= None GI Upset > 30mins: 0= None Tremor Observation of Outstretched Hands: 1= Tremor Jber, Not Seen Yawning Observation: 0= None Anxiety or Irritability: 2=Irritable/Anxious Goose Flesh Skin: 0=Smooth Skin COWS Score: 11 BHS Progress Note (SOAP) Subjective: C/O HOT/COLD CHILLS, MUSCLE ACHES, YAWNING,IRRITABILITY,CRAVINGS. Objective: 02/12/19 12:58 Vital Signs - 24 hr 02/12/19 02/12/19 02/12/19 00:30 03:30 07:13 Temperature 97.8 F Pulse Rate 69 Respiratory 18 18 18 Rate Blood Pressure 109/60 Laboratory Tests 02/10/19 11:20 Urine Color Yellow Urine Appearance Clear Urine pH >= 9.0 H D Ur Specific [place] 1.012 Urine Protein Negative Urine Glucose (UA) Negative Urine Ketones Negative Urine Blood Negative Urine Nitrite Negative Urine Bilirubin Negative Urine Urobilinogen 0.2 Ur Leukocyte Esterase Trace Urine WBC (Auto) 9 Urine RBC (Auto) 1 Urine Casts (Auto) 0 U Epithel Cells (Auto) 0.8 Urine Bacteria (Auto) 2.5 UDS (-)MTD TODAY REPEAT COWS = 11 Assessment: 02/12/19 12:59 W/S CRAVINGS Plan: DISCUSSED PATIENT INORMATION ON SUBOXONE TREATMENT CONSENTED AND SIGNED COPY IN CHART. TO RESTART PT ON SUBOXONE--4 MG/1 MG SL BID RE-EVALUATE AND INCREASE GRADUALLY TO PREVIOUS DOSE OF SUBOXONE 8MG/2MG SL BID. PT AGREEABLE TO POC
[2019-02-12] MEDS ORDERED: BUPRENORPHINE/NALOXONE 2 MG/0.5 MG FILM PACKET SL ONE (14:05)
[2019-02-12] MEDS: BUPRENORPHINE/NALOXONE 2 MG/0.5 MG FILM PACKET SL SCH (18:03)
[2019-02-12] MEDS: QUEtiapine FUMARATE 100 MG TABLET (FP) PO SCH (21:53)
[2019-02-12] MEDS: THIAMINE HCL 100 MG TABLET (FP) PO SCH (21:53)
[2019-02-12] MEDS: NICOTINE POLACRILEX 2 MG GUM BUC PRN (21:54)
[2019-02-13] MEDS: CYCLOBENZAPRINE HCL 10 MG TABLET (FP) PO SCH ×3 (06:07→21:47)
[2019-02-13] MEDS: BUPRENORPHINE/NALOXONE 2 MG/0.5 MG FILM PACKET SL SCH ×2 (06:07→17:26)
[2019-02-13] MEDS: PRENATAL VITAMINS W/ FOLIC ACID TABLET (FP) PO SCH (10:22)
[2019-02-13] MEDS: NICOTINE POLACRILEX 2 MG GUM BUC PRN ×2 (12:28→17:26)
[2019-02-13] MEDS: THIAMINE HCL 100 MG TABLET (FP) PO SCH (21:47)
[2019-02-13] MEDS: QUEtiapine FUMARATE 100 MG TABLET (FP) PO SCH (21:48)
[2019-02-14] MEDS: CYCLOBENZAPRINE HCL 10 MG TABLET (FP) PO SCH ×3 (06:26→21:41)
[2019-02-14] MEDS: BUPRENORPHINE/NALOXONE 2 MG/0.5 MG FILM PACKET SL SCH ×2 (06:26→17:21)
[2019-02-14] MEDS: NICOTINE POLACRILEX 2 MG GUM BUC PRN ×3 (09:28→17:20)
[2019-02-14] MEDS: PRENATAL VITAMINS W/ FOLIC ACID TABLET (FP) PO SCH (09:28)
[2019-02-14] MEDS: ACETAMINOPHEN 325 MG TABLET (FP) PO PRN (21:41)
[2019-02-14] MEDS: QUEtiapine FUMARATE 100 MG TABLET (FP) PO SCH (21:41)
[2019-02-14] MEDS: THIAMINE HCL 100 MG TABLET (FP) PO SCH (21:41)
[2019-02-15] MEDS: BUPRENORPHINE/NALOXONE 2 MG/0.5 MG FILM PACKET SL SCH (06:12)
[2019-02-15] MEDS: CYCLOBENZAPRINE HCL 10 MG TABLET (FP) PO SCH ×3 (06:12→22:08)
[2019-02-15] MEDS: NICOTINE POLACRILEX 2 MG GUM BUC PRN ×3 (08:27→17:26)
[2019-02-15] MEDS: PRENATAL VITAMINS W/ FOLIC ACID TABLET (FP) PO SCH (10:29)
[2019-02-15] MEDS: ACETAMINOPHEN 325 MG TABLET (FP) PO PRN (10:29)
--- NOTE | 2019-02-15 10:56 | PN ---
[facility] Progress Note Note: PT REQUESTING INCREASE ADJUSTMENT OF SUBOXONE TO "REGULAR PREVIOUS DOSE-8MG/2 MG SL BID". REPORTS HE STIIL FEELS CRAVINGS AND PAIN BUT IS GETTING SOME RELIEF COMPARED TO LAST WEEK BEFORE GETTING BACK ON SUBOXONE. Vital Signs 02/15/19 02/15/19 03:30 07:26 Temperature 97.7 F Pulse Rate 79 Respiratory 18 17 Rate Blood Pressure 102/66 A: CRAVINGS PLAN:PT RECEIVED SUBOXONE 4 MG/1 MG S/ WILL INCREASE TO SUBOXONE 6 MG/1.5 MG SL AT 18:00 TODAY GIVE ADDITIONAL SUBOXONE 2MG/0.5 MG SL ONCE NOW. START SUBOXONE 8 MG/2 MG SL BID@0600,1800 ON 02/16/19
[2019-02-15] MEDS ORDERED: BUPRENORPHINE/NALOXONE 2 MG/0.5 MG FILM PACKET SL ONE ×2 (12:15→18:00)
[2019-02-15] MEDS: QUEtiapine FUMARATE 100 MG TABLET (FP) PO SCH (22:08)
[2019-02-15] MEDS: THIAMINE HCL 100 MG TABLET (FP) PO SCH (22:08)
[2019-02-16] MEDS: BUPRENORPHINE/NALOXONE 8 MG/2 MG FILM PACKET SL SCH ×2 (06:17→17:19)
[2019-02-16] MEDS: CYCLOBENZAPRINE HCL 10 MG TABLET (FP) PO SCH ×3 (06:17→21:56)
[2019-02-16] MEDS ORDERED: BUPRENORPHINE/NALOXONE 2 MG/0.5 MG FILM PACKET SL ONE (10:02)
--- NOTE | 2019-02-16 10:13 | PN ---
[facility] Progress Note Note: PT IS SCHEDULED TO BE DISCHARGED TOMORROW. PT HAS TOLERATED SUBOXONE MAT WELL AND VERBALIZED RELIEF WITH CURRENT DOSE. PT WILL FOLLOW UP WITH HIS MAT PROVIDER DR. BRAYAN AGUILERA AT [facility] ON 2ND FLOOR. Vital Signs - 24 hr 02/16/19 02/16/19 02/16/19 00:30 03:30 07:06 Temperature 97.7 F Pulse Rate 81 Respiratory 18 18 18 Rate Blood Pressure 104/59 L PLAN:READY FOR DISCHARGE IN A.M. SEVEN DAYS RX FOR SUBOXONE 8MG/2MG SL BID #14 ELECTRONICALLY SENT TO [facility] FOR PT [employer].
[2019-02-16] MEDS: PRENATAL VITAMINS W/ FOLIC ACID TABLET (FP) PO SCH (10:32)
[2019-02-16] MEDS: ACETAMINOPHEN 325 MG TABLET (FP) PO PRN (10:33)
[2019-02-16] MEDS: NICOTINE POLACRILEX 2 MG GUM BUC PRN ×2 (10:34→17:20)
--- NOTE | 2019-02-16 13:59 | PN ---
[facility] Progress Note Note: Patient is scheduled for discharge tomorrow. Script for 30 days supply of Seroquel 100 mg/hs will electronically transferred to [facility] at [address] [place], [place] [id number]
[2019-02-16] MEDS: QUEtiapine FUMARATE 100 MG TABLET (FP) PO SCH (21:56)
[2019-02-16] MEDS: THIAMINE HCL 100 MG TABLET (FP) PO SCH (21:56)
[2019-02-17] MEDS: BUPRENORPHINE/NALOXONE 8 MG/2 MG FILM PACKET SL SCH (06:23)
[2019-02-17] MEDS: CYCLOBENZAPRINE HCL 10 MG TABLET (FP) PO SCH (06:23)
[2019-02-17 06:58] VITALS: BP 99/61; PULSE 72; TEMP 97.4
[2019-02-17] MEDS: NICOTINE POLACRILEX 2 MG GUM BUC PRN (08:55)
--- NOTE | 2019-02-17 09:57 | PN ---
[facility] Progress Note Note: PT COMPLETED DETOX AND DISCHARGED TODAY. PT WILL FOLLOW UP WITH [facility] AND HIS MAT PROVIDER DR. BRAYAN AGUILERA(SEE PREVIOUS NOTE). ALERT O X 3. DENIES S/H/I. Home Medications Medication Instructions Recorded Quetiapine Fumarate [Seroquel -] 100 mg PO HS #30 tablet 10/27/13 Buprenorphine/Naloxone [Suboxone 1 each SL BID #14 packet MDD 2 02/16/19 8Mg/2Mg Sl Film -] Quetiapine Fumarate [Seroquel] 100 mg PO HS #30 tablet 02/16/19 Naloxone HCl [Narcan] 4 mg NS ONCE PRN #1 spray 02/17/19 Vital Signs 02/17/19 02/17/19 03:30 06:57 Temperature 97.4 F L Pulse Rate 72 Respiratory 18 18 Rate Blood Pressure 99/61 Laboratory Tests 02/10/19 11:20 Urine Color Yellow Urine Appearance Clear Urine pH >= 9.0 H D Ur Specific [place] 1.012 Urine Protein Negative Urine Glucose (UA) Negative Urine Ketones Negative Urine Blood Negative Urine Nitrite Negative Urine Bilirubin Negative Urine Urobilinogen 0.2 Ur Leukocyte Esterase Trace Urine WBC (Auto) 9 Urine RBC (Auto) 1 Urine Casts (Auto) 0 U Epithel Cells (Auto) 0.8 Urine Bacteria (Auto) 2.5 NAD MEDICALLY STABLE PLAN:D/C PT TODAY FOLLOW UP WITH [facility] INDICATED FOLLOW UP WITH SUBOXONE MAT CONTINUATION ON 02/22/[address] AGUILERA AT [facility]. SKILLED NURSING PROFESSIONAL RX FOR SUBOXONE ABOVE #14 FROM [facility] BEFORE EXITING THIS BUILDING TODAY.
[2019-02-17] MEDS: PRENATAL VITAMINS W/ FOLIC ACID TABLET (FP) PO SCH (10:01)
== END 2019-02-17 10:10 | disposition home or self-care (01) | DRG 772 ==
LOC: YASAS 12:49 → Y5N 12:50
PROVIDERS: ADMIT Neuromusculoskeletal Medicine & OMM; ATTEND Neuromusculoskeletal Medicine & OMM
PROC: HZ42ZZZ Group Counseling for Substance Abuse Treatment, Cognitive-Behavioral (ICD-10-PCS; principal; 2019-02-08)
DX: F11.20 Opioid dependence, uncomplicated (principal); F10.20 Alcohol dependence, uncomplicated; F14.20 Cocaine dependence, uncomplicated; F17.210 Nicotine dependence, cigarettes, uncomplicated; M54.5 Low back pain; Z51.81 Encounter for therapeutic drug level monitoring
CPT/HCPCS: 81003

== ENCOUNTER 2020-01-13 11:03 | Inpatient (IN) | payer OTHER ==
--- NOTE | 2020-01-13 12:34 | BHS.RME ---
Substance Use & Tx History - Substance Use History Alcohol Substance amount: 1 pint Vodka, 2 quarts beer Frequency of use: Daily Substance route: Oral Date of Last Use: 01/13/20 Opiates (Heroin) Substance amount: one bundle Frequency of use: Daily Substance route: Inhalation (ex: sniffing or snorting) Date of Last Use: 01/12/20 Cocaine (Powder) Substance amount: $20 Frequency of use: Daily Substance route: Inhalation (ex: sniffing or snorting) Date of Last Use: 01/11/20 COWS - Scale Resting Pulse: 0= [place] 80 or Below Sweatin= Chills/Flushing Restless Observation: 0= Sits Still Pupil Size: 0= Normal to Room Light Bone or Joint Aches: 1= Mild Discomfort Runny Nose/ Eye Tearin= None GI Upset > 30mins: 0= None Tremor Observation: 0= None Yawning Observation: 1= 1-2x During Session Anxiety or Irritability: 0= None Goose Flesh Skin: 0=Smooth Skin COWS Score: 3 CIWA Nausea/Vomitin-No Nausea/No Vomiting Muscle Tremors: None Anxiety: 0-No Anxiety, at Ease Agitation: 0-Normal Activity Paroxysmal Sweats: 2 Orientation: 2-Disoriented Date<2 days Tacttile Disturbances: 0-None Auditory Disturbances: 0-None Visual Disturbances: 0-None
[2020-01-13 13:21] VITALS: BMI 27.3
--- NOTE | 2020-01-13 13:40 | HP ---
COWS - Scale Resting Pulse: 0= [place] 80 or Below Sweatin= Chills/Flushing Restless Observation: 0= Sits Still Pupil Size: 0= Normal to Room Light Bone or Joint Aches: 1= Mild Discomfort Runny Nose/ Eye Tearin= None GI Upset > 30mins: 0= None Tremor Observation: 0= None Yawning Observation: 1= 1-2x During Session Anxiety or Irritability: 0= None Goose Flesh Skin: 0=Smooth Skin COWS Score: 3 CIWA Score Nausea/Vomitin-No Nausea/No Vomiting Muscle Tremors: None Anxiety: 0-No Anxiety, at Ease Agitation: 0-Normal Activity Paroxysmal Sweats: 2 Orientation: 2-Disoriented Date<2 days Tacttile Disturbances: 0-None Auditory Disturbances: 0-None Visual Disturbances: 0-None Headache: 0-None Present CIWA-Ar Total Score: 4 - Admission Criteria OASAS Guidelines: Admission for Medically Managed Detox: Requires at least one of the followin. CIWA greater than 12 2. Seizures within the past 24 hours 3. Delirium tremens within the past 24 hours 4. Hallucinations within the past 24 hours 5. Acute intervention needed for co occurring medical disorder 6. Acute intervention needed for co occurring psychiatric disorder 7. Severe withdrawal that cannot be handled at a lower level of care (continued vomiting, continued diarrhea, abnormal vital signs) requiring intravenous medication and/or fluids 8. Admitting History and Physical - Admission Chief Complaint: 50 y/o M, presents for heroin and alcohol detox. History of Present Illness: 50 y/o M, presents for heroin and alcohol detox. Last detox last year at [facility] for heroin and alcohol. Relapsed 6 months after discharged. Reports that he is around the wrong crowd that influence him to detox. Heroin user, 1 bundle daily, sniff, started at 15 yo, last used this morning. No overdosed on. Has Narcan at home. Blackoutx1 from alcohol. 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 Suboxone 2 months ago, [employer]: none History Source: Patient Limitations to Obtaining History: No Limitations - Smoking History Smoking history: Current every day smoker Have you smoked in the past 12 months: Yes Aproximately how many cigarettes per day: 20 - Alcohol/Substance Use Hx Alcohol Use: Yes Admission [facility] Allergies/Adverse Reactions: Allergies Allergy/AdvReac Type Severity Reaction Status Date / Time No Known Allergies Allergy Verified 01/13/20 13:11 Exam Limitations: No Limitations - Ebola screening Have you traveled outside of the country in the last 21 days: No Have you been sick,other than usual withdrawal symptoms: No Do you have a fever: No - Review of Systems Constitutional: No Symptoms Reported EENT: reports: No Symptoms Reported. denies: Blurred Vision, Throat Pain Respiratory: reports: No Symptoms reported. denies: Cough, Shortness of Breath, SOB with Exertion, Wheezing, Hemoptysis Cardiac: reports: No Symptoms Reported. denies: Chest Pain, Lightheadedness GI: reports: No Symptoms Reported. denies: Constipated, Diarrhea, Nausea, Vomiting, Abdominal cramping : denies: Dysuria Musculoskeletal: denies: Back Pain Integumentary: reports: No Symptoms Reported Neuro: reports: No Symptoms reported. denies: Headache, Numbness, Tremors Endocrine: reports: No Symptoms Reported. denies: Excessive Sweating, Unexplained Weight Loss Psychiatric: reports: Depressed (mild depressed). denies: Anxious Patient History - Patient Medical History Hx Anemia: No Hx Asthma: No Hx Chronic Obstructive Pulmonary Disease (COPD): No Hx Cancer: No Hx Cardiac Disorders: No Hx Congestive Heart Failure: No Hx Hypertension: No Hx Hypercholesterolemia: Yes (no meds ) Hx Pacemaker: No HX Cerebrovascular Accident: No Hx Seizures: No Hx Dementia: No Hx Diabetes: No Hx Gastrointestinal Disorders: No Hx Liver Disease: No Hx Genitourinary Disorders: No Hx Sexually Transmitted Disorders: No Hx Renal Disease (ESRD): No Hx Thyroid Disease: No Hx Human Immunodeficiency Virus (HIV): No Hx Hepatitis C: No Hx Depression: No Hx Suicide Attempt: No Hx Bipolar Disorder: No Hx Schizophrenia: No - Patient Surgical History Past Surgical History: No Hx Neurologic Surgery: No Hx Cataract Extraction: No Hx Cardiac Surgery: No Hx Lung Surgery: No Hx Breast Surgery: No Hx Breast Biopsy: No Hx Abdominal Surgery: No Hx Appendectomy: No Hx Cholecystectomy: No Hx Genitourinary Surgery: No Hx Section: No Hx Orthopedic Surgery: No Anesthesia Reaction: No - PPD History Previous Implant?: Yes Documented Results: Negative w/proof Implanted On Prior [facility] Admission?: Yes Date: 02/06/19 Results: 0MM - Reproductive History Patient : No - Smoking Cessation Smoking history: Current every day smoker Have you smoked in the past 12 months: Yes Aproximately how many cigarettes per day: 20 Cigars Per Day: 0 Hx Chewing Tobacco Use: No Initiated information on smoking cessation: Yes 'Breaking Loose' booklet given: 01/13/20 - Substance & Tx. History Hx Alcohol Use: Yes Hx Substance Use: Yes Substance Use Type: Alcohol, Cocaine, Heroin, Opiates Hx Substance Use Treatment: Yes - Substances abused Alcohol Substance route: Oral Frequency: Daily Amount used: 1 pint of vodka & 2 quart of beer Age of first use: 15 Date of last use: 01/13/20 Heroin Substance route: Inhalation Frequency: Daily Amount used: 1 bungle Age of first use: 15 Date of last use: 01/12/20 Cocaine Substance route: Inhalation Frequency: Daily Amount used: $20 Age of first use: 15 Date of last use: 01/11/20 Other Other (specify): nicotine Substance route: Smoking Frequency: Daily Amount used: 1ppd Age of first use: 15 Admission Physical Exam S - Vital Signs Vital Signs: Vital Signs - 24 hr 01/13/20 13:18 Temperature 97.1 F L Pulse Rate 56 L Respiratory 18 Rate Blood Pressure 105/65 - Physical General Appearance: Yes: Within Normal Limits, No Apparent Distress, Nourished HEENTM: Yes: Within Normal Limits, EOMI, Normal Voice, NAVIN, Pharynx Normal Respiratory: Yes: Within Normal Limits, Chest Non-Tender, Lungs Clear, Normal Breath Sounds, No Respiratory Distress, No Accessory Muscle Use Neck: Yes: No masses,lesions,Nodules Abdominal: Yes: Within Normal Limits, Normal Bowel Sounds, Non Tender, Soft. No: Rebound, Tenderness Musculoskeletal: Yes: Within Normal Limits Extremities: Yes: Within Normal Limits, Normal Capillary Refill, Normal Range of Motion. No: Coldness, Cyanosis Neurological: Yes: Within Normal Limits, Fully Oriented, Alert, Normal Response, Depressed Affect Integumentary: Yes: Within Normal Limits, Normal Color, Dry, Warm - Diagnostic (1) Alcohol dependence with uncomplicated withdrawal Current Visit: Yes Status: Acute (2) Opioid dependence with withdrawal Current Visit: Yes Status: Acute (3) Cocaine dependence Current Visit: No Status: Chronic (4) Nicotine dependence Current Visit: Yes Status: Chronic Qualifiers: Nicotine product type: cigarettes Substance use status: uncomplicated Qualified Code(s): F17.210 - Nicotine dependence, cigarettes, uncomplicated Cleared for Admission S - Detox or Rehab [facility] Level of Care: Medically Managed Detox Regimen/Protocol: Methadone/Librium Breathalyzer - Breathalyzer Breathalyzer: 0 Urine Drug Screen - Test Device Lot number: [id number] Expiration date: 10/02/21 - Control Is test valid?: Yes - Results Drug screen NEGATIVE: No Urine drug screen results: BRIJESH-Cocaine, FEN-Fentanyl, MOP-Opiates Inpatient Rehab Admission - Rehab Decision to Admit Inpatient rehab admission?: No
[2020-01-13] MEDS ORDERED: cloNIDine HCL 0.1 MG TABLET PO PRN (13:56)
[2020-01-13] MEDS ORDERED: METHADONE HCL 10 MG TABLET (FOR DETOX USE ONLY) PO ONE (13:56)
[2020-01-13] MEDS ORDERED: chlordiazePOXIDE HCL 25 MG CAPSULE PO PRN (13:56)
[2020-01-13] MEDS ORDERED: MAGNESIUM CITRATE 300 ML BOTTLE PO PRN (13:57)
[2020-01-13] MEDS ORDERED: ONDANSETRON *ODT* 4 MG TABLET SL ONE (13:57)
[2020-01-13] MEDS ORDERED: IBUPROFEN 400 MG TABLET (FP) PO PRN (13:57)
[2020-01-13] MEDS ORDERED: MAG HYDROX/AL HYDROX/SIMETH 30 ML UNIT-DOSE CUP PO PRN (13:57)
[2020-01-13] MEDS ORDERED: ACETAMINOPHEN 325 MG TABLET (FP) PO PRN ×2 (13:57)
[2020-01-13] MEDS ORDERED: BISMUTH SUBSALICYLATE 262 MG/15 ML BTL PO PRN (13:57)
[2020-01-13] MEDS ORDERED: MENTHOL/PHENOL 1 EACH UD MM PRN (13:57)
[2020-01-13] MEDS ORDERED: MAGNESIUM HYDROX 2400MG/30ML ORAL SUSPENSION 30 ML CUP PO PRN (13:57)
[2020-01-13] MEDS: NICOTINE 7 MG/24 HOURS TOPICAL PATCH TD SCH (15:18)
[2020-01-13] MEDS: hydrOXYzine PAMOATE 25 MG CAPSULE (FP) PO SCH ×3 (15:18→22:33)
[2020-01-13] MEDS: PRENATAL VITAMINS W/ FOLIC ACID TABLET (FP) PO SCH (15:18)
[2020-01-13] MEDS: NICOTINE 14 MG/24 HOURS TOPICAL PATCH TD SCH (15:19)
--- NOTE | 2020-01-13 16:10 | EKG ---
Test Reason : Blood Pressure : / mmHG Vent. Rate : 044 BPM Atrial Rate : 044 BPM P-R Int : 164 ms QRS Dur : 102 ms QT Int : 446 ms P-R-T Axes : 070 049 054 degrees QTc Int : 381 ms MARKED SINUS BRADYCARDIA MINIMAL VOLTAGE CRITERIA FOR LVH, MAY BE NORMAL VARIANT ABNORMAL ECG WHEN COMPARED WITH ECG OF 04-FEB-2019 16:00, NO SIGNIFICANT CHANGE WAS FOUND Confirmed by MD DEMAR, PAYAM ([id number]) on 01/13/2020 4:10:33 PM Referred By: Confirmed By:PAYAM BENZ MD
[2020-01-13 17:18] LABS: HEMATOCRIT 41.3 % (35.4-49); HEMOGLOBIN 13.7 GM/dL (11.7-16.9); MCH 29.8 pg (25.7-33.7); MCHC 33.2 g/dl (32.0-35.9); MEAN CELL VOLUME 89.6 fl (80-96); MEAN PLT VOLUME 9.2 fl (7.5-11.1); PLATELET COUNT 200 K/MM3 (134-434); RBC 4.61 M/mm3 (4.00-5.60); RDW 13.9 % (11.9-15.9); WHITE BLOOD COUNT 5.2 K/mm3 (4.0-10.0)
[2020-01-13] MEDS: chlordiazePOXIDE HCL 25 MG CAPSULE PO SCH ×2 (17:18→22:33)
[2020-01-13 17:27] LABS: ALBUMIN 3.7 g/dl (3.4-5.0); BILIRUBIN,TOTAL 0.2 mg/dL (0.2-1); BLOOD UREA NITROGEN 15.6 mg/dL (7-18); CALCIUM 8.4 mg/dL (8.5-10.1); CREATININE 1.2 mg/dL (0.55-1.3); POTASSIUM 4.2 mmol/L (3.5-5.1); TOT PROT 6.4 g/dl (6.4-8.2)
[2020-01-13] MEDS: MELATONIN 5 MG TABLETS PO SCH (22:33)
[2020-01-13] MEDS: THIAMINE HCL 100 MG TABLET (FP) PO SCH (22:33)
[2020-01-14] MEDS: chlordiazePOXIDE HCL 25 MG CAPSULE PO SCH ×4 (05:22→22:17)
[2020-01-14] MEDS: hydrOXYzine PAMOATE 25 MG CAPSULE (FP) PO SCH ×5 (05:22→22:17)
[2020-01-14] MEDS ORDERED: METHADONE HCL 5 MG TABLET (FOR DETOX USE ONLY) PO ONE (10:00)
[2020-01-14] MEDS: PRENATAL VITAMINS W/ FOLIC ACID TABLET (FP) PO SCH (10:05)
[2020-01-14] MEDS: NICOTINE 14 MG/24 HOURS TOPICAL PATCH TD SCH (10:06)
[2020-01-14] MEDS: NICOTINE 7 MG/24 HOURS TOPICAL PATCH TD SCH (10:06)
--- NOTE | 2020-01-14 11:45 | PN ---
[facility] CIWA - CIWA Score Nausea/Vomitin-No Nausea/No Vomiting Muscle Tremors: 1-None Visible, but [place] Anxiety: 1-Mildly Anxious Agitation: 0-Normal Activity Paroxysmal Sweats: No Perspiration Orientation: 0-Oriented Tacttile Disturbances: 0-None Auditory Disturbances: 0-None Visual Disturbances: 0-None Headache: 0-None Present CIWA-Ar Total Score: 2 S COWS - Scale Resting Pulse: 0= [place] 80 or Below Sweatin= No chills or Flushing Restless Observation: 0= Sits Still Pupil Size: 0= Normal to Room Light Bone or Joint Aches: 0= None Runny Nose/ Eye Tearin= None GI Upset > 30mins: 0= None Tremor Observation of Outstretched Hands: 0= None Yawning Observation: 0= None Anxiety or Irritability: 1=Feels Anxious/Irritable Goose Flesh Skin: 0=Smooth Skin COWS Score: [address] [facility] Progress Note (SOAP) Subjective: Feels anxious Objective: 01/14/20 11:41 Laboratory Tests 01/13/20 01/13/20 01/14/20 13:00 13:00 07:30 WBC 5.2 RBC 4.61 Hgb 13.7 Hct 41.3 MCV 89.6 MCH 29.8 MCHC 33.2 RDW 13.9 Plt Count 200 MPV 9.2 Sodium 142 Potassium 4.2 Chloride 107 Carbon Dioxide 29 Anion Gap 6 L BUN 15.6 Creatinine 1.2 Est GFR (CKD-EPI)AfAm 80.66 Est GFR (CKD-EPI)NonAf 69.59 Random Glucose 91 Calcium 8.4 L Total Bilirubin 0.2 AST 9 L ALT 15 Alkaline Phosphatase 57 Total Protein 6.4 Albumin 3.7 RPR Titer Nonreactive Vital Signs Temperature 96.6 F L 01/14/20 08:33 Pulse Rate 70 01/14/20 08:33 Respiratory Rate 16 01/14/20 08:33 Blood Pressure 101/59 L 01/14/20 08:33 O2 Sat by Pulse Oximetry (%) PE Gnl: WDWN, in no distress Mental status: sleepy, easily aroused, follows commands Motor: no tremor with arms sustended Coord: nl Assessment: 01/14/20 11:45 1. Alcohol use disorder 2. Opioid use disorder 3. Nicotine dependence Plan: 1. Continue Librium withdrawal protocol 2. continue Methadone withdrawal protocol 3. Nicotine patch and gum as directed
[2020-01-14] MEDS ORDERED: FLU VACCINE QUAD 60 MCG/0.5 ML (MDV 19-20) IM ONE (12:00)
[2020-01-14] MEDS: MELATONIN 5 MG TABLETS PO SCH (22:17)
[2020-01-14] MEDS: THIAMINE HCL 100 MG TABLET (FP) PO SCH (22:17)
[2020-01-14] MEDS: METHOCARBAMOL 500 MG TABLET PO PRN (23:04)
[2020-01-15] MEDS: METHOCARBAMOL 500 MG TABLET PO PRN (05:35)
[2020-01-15] MEDS: chlordiazePOXIDE HCL 25 MG CAPSULE PO SCH ×4 (05:36→22:13)
[2020-01-15] MEDS: hydrOXYzine PAMOATE 25 MG CAPSULE (FP) PO SCH ×5 (05:36→22:14)
[2020-01-15] MEDS ORDERED: METHADONE HCL 10 MG TABLET (FOR DETOX USE ONLY) PO ONE (10:00)
[2020-01-15] MEDS: PRENATAL VITAMINS W/ FOLIC ACID TABLET (FP) PO SCH (10:04)
[2020-01-15] MEDS: NICOTINE 14 MG/24 HOURS TOPICAL PATCH TD SCH (10:05)
--- NOTE | 2020-01-15 11:46 | PN ---
[facility] CIWA - CIWA Score Nausea/Vomitin-No Nausea/No Vomiting Muscle Tremors: None Anxiety: 3 Agitation: 0-Normal Activity Paroxysmal Sweats: 3 Orientation: 0-Oriented Tacttile Disturbances: 0-None Auditory Disturbances: 0-None Visual Disturbances: 0-None Headache: 2-Mild CIWA-Ar Total Score: 8 S COWS - Scale Resting Pulse: 0= [place] 80 or Below Sweatin=Flushed/Facial Moisture Restless Observation: 0= Sits Still Pupil Size: 0= Normal to Room Light Bone or Joint Aches: 1= Mild Discomfort Runny Nose/ Eye Tearin= None GI Upset > 30mins: 0= None Tremor Observation of Outstretched Hands: 0= None Yawning Observation: 0= None Anxiety or Irritability: 2=Irritable/Anxious Goose Flesh Skin: 0=Smooth Skin COWS Score: 5 [facility] Progress Note (SOAP) Subjective: Complains of headache, anxiety, muscle aches and sweats. Objective: 01/15/20 11:44 Vital Signs Temperature 96.6 F L 01/15/20 08:42 Pulse Rate 72 01/15/20 08:42 Respiratory Rate 18 01/15/20 08:42 Blood Pressure 107/64 01/15/20 08:42 O2 Sat by Pulse Oximetry (%) Laboratory Last Values WBC 5.2 K/mm3 (4.0-10.0) 01/13/20 13:00 RBC 4.61 M/mm3 (4.00-5.60) 01/13/20 13:00 Hgb 13.7 GM/dL (11.7-16.9) 01/13/20 13:00 Hct 41.3 % (35.4-49) 01/13/20 13:00 MCV 89.6 fl (80-96) 01/13/20 13:00 MCH 29.8 pg (25.7-33.7) 01/13/20 13:00 MCHC 33.2 g/dl (32.0-35.9) 01/13/20 13:00 RDW 13.9 % (11.9-15.9) 01/13/20 13:00 Plt Count 200 K/MM3 (134-434) 01/13/20 13:00 MPV 9.2 fl (7.5-11.1) 01/13/20 13:00 Sodium 142 mmol/L (136-145) 01/13/20 13:00 Potassium 4.2 mmol/L (3.5-5.1) 01/13/20 13:00 Chloride 107 mmol/L (98-107) 01/13/20 13:00 Carbon Dioxide 29 mmol/L (21-32) 01/13/20 13:00 Anion Gap 6 MMOL/L (8-16) L 01/13/20 13:00 BUN 15.6 mg/dL (7-18) 01/13/20 13:00 Creatinine 1.2 mg/dL (0.55-1.3) 01/13/20 13:00 Est GFR (CKD-EPI)AfAm 80.66 01/13/20 13:00 Est GFR (CKD-EPI)NonAf 69.59 01/13/20 13:00 Random Glucose 91 mg/dL (74-106) 01/13/20 13:00 Calcium 8.4 mg/dL (8.5-10.1) L 01/13/20 13:00 Total Bilirubin 0.2 mg/dL (0.2-1) 01/13/20 13:00 AST 9 U/L (15-37) L 01/13/20 13:00 ALT 15 U/L (13-61) 01/13/20 13:00 Alkaline Phosphatase 57 U/L (45-117) 01/13/20 13:00 Total Protein 6.4 g/dl (6.4-8.2) 01/13/20 13:00 Albumin 3.7 g/dl (3.4-5.0) 01/13/20 13:00 RPR Titer Nonreactive (NONREACTIVE) 01/14/20 07:30 Labs noted Assessment: 01/15/20 11:45 Pt is AO x3, in no acute respiratory distress. Withdrawal symptoms. Moving all extremities. Plan: Continue detox protocol.
[2020-01-15] MEDS: MELATONIN 5 MG TABLETS PO SCH (22:13)
[2020-01-15] MEDS: THIAMINE HCL 100 MG TABLET (FP) PO SCH (22:13)
[2020-01-16] MEDS ORDERED: chlordiazePOXIDE HCL 10 MG CAPSULE PO PRN
[2020-01-16] MEDS ORDERED: METHADONE HCL 5 MG TABLET (FOR DETOX USE ONLY) PO ONE (06:00)
[2020-01-16] MEDS: chlordiazePOXIDE HCL 10 MG CAPSULE PO SCH ×4 (06:36→22:40)
[2020-01-16] MEDS: hydrOXYzine PAMOATE 25 MG CAPSULE (FP) PO SCH ×5 (06:36→22:40)
[2020-01-16] MEDS: METHOCARBAMOL 500 MG TABLET PO PRN (06:36)
[2020-01-16] MEDS: PRENATAL VITAMINS W/ FOLIC ACID TABLET (FP) PO SCH (10:17)
[2020-01-16] MEDS: NICOTINE 14 MG/24 HOURS TOPICAL PATCH TD SCH (10:17)
--- NOTE | 2020-01-16 12:01 | PN ---
S CIWA - CIWA Score Nausea/Vomitin-No Nausea/No Vomiting Muscle Tremors: 1-None Visible, but [place] Anxiety: 1-Mildly Anxious Agitation: 0-Normal Activity Paroxysmal Sweats: 1-Minimal Palms Moist Orientation: 0-Oriented Tacttile Disturbances: 0-None Auditory Disturbances: 0-None Visual Disturbances: 1-Very Mild Sensitivity Headache: 0-None Present CIWA-Ar Total Score: 4 S COWS - Scale Resting Pulse: 0= [place] 80 or Below Sweatin= No chills or Flushing Restless Observation: 0= Sits Still Pupil Size: 0= Normal to Room Light Bone or Joint Aches: 0= None Runny Nose/ Eye Tearin= None GI Upset > 30mins: 0= None Tremor Observation of Outstretched Hands: 1= Tremor [place], Not Seen Yawning Observation: 0= None Anxiety or Irritability: 1=Feels Anxious/Irritable Goose Flesh Skin: 0=Smooth Skin COWS Score: 2 S Progress Note (SOAP) Subjective: 49 years old male admitted on 01/13/20 for alcohol and opiate withdrawal sx management treating with librium and methadone detox regiment Mr Smith has completed the methadone regiment and is doing well mild tremor anxiety report long history of psoriasis both elbows hydrocortison cream 1% Objective: 01/16/20 12:02 Vital Signs Temperature 96.5 F L 01/16/20 08:49 Pulse Rate 66 01/16/20 08:49 Respiratory Rate 18 01/16/20 08:49 Blood Pressure 128/82 01/16/20 08:49 O2 Sat by Pulse Oximetry (%) Laboratory Last Values WBC 5.2 K/mm3 (4.0-10.0) 01/13/20 13:00 RBC 4.61 M/mm3 (4.00-5.60) 01/13/20 13:00 Hgb 13.7 GM/dL (11.7-16.9) 01/13/20 13:00 Hct 41.3 % (35.4-49) 01/13/20 13:00 MCV 89.6 fl (80-96) 01/13/20 13:00 MCH 29.8 pg (25.7-33.7) 01/13/20 13:00 MCHC 33.2 g/dl (32.0-35.9) 01/13/20 13:00 RDW 13.9 % (11.9-15.9) 01/13/20 13:00 Plt Count 200 K/MM3 (134-434) 01/13/20 13:00 MPV 9.2 fl (7.5-11.1) 01/13/20 13:00 Sodium 142 mmol/L (136-145) 01/13/20 13:00 Potassium 4.2 mmol/L (3.5-5.1) 01/13/20 13:00 Chloride 107 mmol/L (98-107) 01/13/20 13:00 Carbon Dioxide 29 mmol/L (21-32) 01/13/20 13:00 Anion Gap 6 MMOL/L (8-16) L 01/13/20 13:00 BUN 15.6 mg/dL (7-18) 01/13/20 13:00 Creatinine 1.2 mg/dL (0.55-1.3) 01/13/20 13:00 Est GFR (CKD-EPI)AfAm 80.66 01/13/20 13:00 Est GFR (CKD-EPI)NonAf 69.59 01/13/20 13:00 Random Glucose 91 mg/dL (74-106) 01/13/20 13:00 Calcium 8.4 mg/dL (8.5-10.1) L 01/13/20 13:00 Total Bilirubin 0.2 mg/dL (0.2-1) 01/13/20 13:00 AST 9 U/L (15-37) L 01/13/20 13:00 ALT 15 U/L (13-61) 01/13/20 13:00 Alkaline Phosphatase 57 U/L (45-117) 01/13/20 13:00 Total Protein 6.4 g/dl (6.4-8.2) 01/13/20 13:00 Albumin 3.7 g/dl (3.4-5.0) 01/13/20 13:00 RPR Titer Nonreactive (NONREACTIVE) 01/14/20 07:30 lab noted Assessment: 01/16/20 12:02 alcohol and opiate withdrawal Plan: librium and methadone regiment
[2020-01-16] MEDS: NICOTINE POLACRILEX 2 MG GUM BUC PRN (13:27)
[2020-01-16] MEDS: HYDROCORTISONE 1% TOPICAL CREAM 30 GM TUBE TP SCH ×3 (15:05→22:40)
[2020-01-16] MEDS: THIAMINE HCL 100 MG TABLET (FP) PO SCH (22:40)
[2020-01-16] MEDS: MELATONIN 5 MG TABLETS PO SCH (22:41)
[2020-01-17] MEDS: hydrOXYzine PAMOATE 25 MG CAPSULE (FP) PO SCH ×5 (06:20→22:10)
[2020-01-17] MEDS: chlordiazePOXIDE HCL 10 MG CAPSULE PO SCH ×2 (06:20→17:25)
[2020-01-17] MEDS: PRENATAL VITAMINS W/ FOLIC ACID TABLET (FP) PO SCH (10:22)
[2020-01-17] MEDS: NICOTINE 14 MG/24 HOURS TOPICAL PATCH TD SCH (10:22)
[2020-01-17] MEDS: HYDROCORTISONE 1% TOPICAL CREAM 30 GM TUBE TP SCH ×4 (10:22→22:13)
[2020-01-17] MEDS: NICOTINE POLACRILEX 2 MG GUM BUC PRN ×2 (11:22→15:05)
--- NOTE | 2020-01-17 12:26 | PN ---
[facility] CIWA - CIWA Score Nausea/Vomitin-No Nausea/No Vomiting Muscle Tremors: 1-None Visible, but [place] Anxiety: 0-No Anxiety, at Ease Agitation: 0-Normal Activity Paroxysmal Sweats: 1-Minimal Palms Moist Orientation: 0-Oriented Tacttile Disturbances: 0-None Auditory Disturbances: 0-None Visual Disturbances: 0-None Headache: 0-None Present CIWA-Ar Total Score: 2 S COWS - Scale Resting Pulse: 0= [place] 80 or Below Sweatin= No chills or Flushing Restless Observation: 0= Sits Still Pupil Size: 0= Normal to Room Light Bone or Joint Aches: 0= None Runny Nose/ Eye Tearin= None GI Upset > 30mins: 0= None Tremor Observation of Outstretched Hands: 1= Tremor [place], Not Seen Yawning Observation: 0= None Anxiety or Irritability: 0= None Goose Flesh Skin: 0=Smooth Skin COWS Score: 1 S Progress Note (SOAP) Subjective: 49 years old male admitted on 01/13/20 for alcohol and opiate withdrawal sx management treating with librium and methadone detox regiments fell from chair around 1030 today on the hallway witnessed by the check writer salesperson patient requests more methadone due to "leaving tomorrow" discussed methadone maintenance program patient prefers suboxone that methadone program by history not working informed methadone may not mixed with suboxone together Objective: 01/17/20 12:25 Vital Signs Temperature 97.1 F L 01/17/20 08:43 Pulse Rate 69 01/17/20 08:43 Respiratory Rate 18 01/17/20 08:43 Blood Pressure 107/63 01/17/20 08:43 O2 Sat by Pulse Oximetry (%) Laboratory Last Values WBC 5.2 K/mm3 (4.0-10.0) 01/13/20 13:00 RBC 4.61 M/mm3 (4.00-5.60) 01/13/20 13:00 Hgb 13.7 GM/dL (11.7-16.9) 01/13/20 13:00 Hct 41.3 % (35.4-49) 01/13/20 13:00 MCV 89.6 fl (80-96) 01/13/20 13:00 MCH 29.8 pg (25.7-33.7) 01/13/20 13:00 MCHC 33.2 g/dl (32.0-35.9) 01/13/20 13:00 RDW 13.9 % (11.9-15.9) 01/13/20 13:00 Plt Count 200 K/MM3 (134-434) 01/13/20 13:00 MPV 9.2 fl (7.5-11.1) 01/13/20 13:00 Sodium 142 mmol/L (136-145) 01/13/20 13:00 Potassium 4.2 mmol/L (3.5-5.1) 01/13/20 13:00 Chloride 107 mmol/L (98-107) 01/13/20 13:00 Carbon Dioxide 29 mmol/L (21-32) 01/13/20 13:00 Anion Gap 6 MMOL/L (8-16) L 01/13/20 13:00 BUN 15.6 mg/dL (7-18) 01/13/20 13:00 Creatinine 1.2 mg/dL (0.55-1.3) 01/13/20 13:00 Est GFR (CKD-EPI)AfAm 80.66 01/13/20 13:00 Est GFR (CKD-EPI)NonAf 69.59 01/13/20 13:00 Random Glucose 91 mg/dL (74-106) 01/13/20 13:00 Calcium 8.4 mg/dL (8.5-10.1) L 01/13/20 13:00 Total Bilirubin 0.2 mg/dL (0.2-1) 01/13/20 13:00 AST 9 U/L (15-37) L 01/13/20 13:00 ALT 15 U/L (13-61) 01/13/20 13:00 Alkaline Phosphatase 57 U/L (45-117) 01/13/20 13:00 Total Protein 6.4 g/dl (6.4-8.2) 01/13/20 13:00 Albumin 3.7 g/dl (3.4-5.0) 01/13/20 13:00 RPR Titer Nonreactive (NONREACTIVE) 01/14/20 07:30 lab noted Assessment: 01/17/20 12:25 alcohol and opiate withdrawal Plan: librium and methadone regiment patient prefers to go [facility] and begin suboxone
--- NOTE | 2020-01-17 17:40 | PN ---
[facility] Progress Note Note: Psychiatry Attending's note : Sensitized Paper Tester is approached by patient. Mr Smith has requested seroquel at bedtime. " I got that medication before and it helped me a lot." Complaint : chronic insomnia. Chart reviewed. Patient is known to this show card writer. Past treatment with seroquel at bedtime : verified. Intervention : Side effects/benefits discussed with patient. Informed consent obtained from Mr Smith. Seroquel 50 mg po hs. Ordered at patient's request.
[2020-01-17] MEDS ORDERED: QUEtiapine FUMARATE 50 MG TABLET PO SCH (22:00)
[2020-01-17] MEDS: MELATONIN 5 MG TABLETS PO SCH (22:10)
[2020-01-17] MEDS: THIAMINE HCL 100 MG TABLET (FP) PO SCH (22:10)
[2020-01-18] MEDS ORDERED: chlordiazePOXIDE HCL 10 MG CAPSULE PO ONE (05:00)
[2020-01-18] MEDS: hydrOXYzine PAMOATE 25 MG CAPSULE (FP) PO SCH ×2 (05:03→10:29)
[2020-01-18] MEDS: PRENATAL VITAMINS W/ FOLIC ACID TABLET (FP) PO SCH (10:29)
[2020-01-18] MEDS: NICOTINE 14 MG/24 HOURS TOPICAL PATCH TD SCH (10:30)
[2020-01-18] MEDS: HYDROCORTISONE 1% TOPICAL CREAM 30 GM TUBE TP SCH (10:30)
[2020-01-18 11:21] VITALS: BP 135/72; PULSE 100; TEMP 96.4
--- NOTE | 2020-01-18 11:57 | DS ---
[facility] Detox Discharge Summary Admission Date: 01/13/20 Discharge Date: 01/18/20 - History Present History: Alcohol Dependence, Opioid Dependence Additional Comments: 49 years old male admitted on 01/13/20 for alcohol and opiate withdrawal sx management treating with librium and methadone detox regiments Mr Smith has completed the librium and methadone regiments and is tolerated well seen by psychiatrist begin seroquel 50 mg po hs alert oriented x 3 no sequala from yesterday fall denies pain denies alteration in gait respiratory clear lung sounds bilaterally on auscultation abdomen soft no rebound tenderness extremities full range of motion Pertinent Past History: time for discharge 45 minutes - Physical Exam Results Vital Signs: Vital Signs Temperature 96.4 F L 01/18/20 10:30 Pulse Rate 100 H 01/18/20 10:30 Respiratory Rate 20 01/18/20 10:30 Blood Pressure 135/72 01/18/20 10:30 O2 Sat by Pulse Oximetry (%) Pertinent Admission Physical Exam Findings: alcohol and opiate withdrawal Vital Signs Temperature 96.4 F L 01/18/20 10:30 Pulse Rate 100 H 01/18/20 10:30 Respiratory Rate 20 01/18/20 10:30 Blood Pressure 135/72 01/18/20 10:30 O2 Sat by Pulse Oximetry (%) Laboratory Last Values WBC 5.2 K/mm3 (4.0-10.0) 01/13/20 13:00 RBC 4.61 M/mm3 (4.00-5.60) 01/13/20 13:00 Hgb 13.7 GM/dL (11.7-16.9) 01/13/20 13:00 Hct 41.3 % (35.4-49) 01/13/20 13:00 MCV 89.6 fl (80-96) 01/13/20 13:00 MCH 29.8 pg (25.7-33.7) 01/13/20 13:00 MCHC 33.2 g/dl (32.0-35.9) 01/13/20 13:00 RDW 13.9 % (11.9-15.9) 01/13/20 13:00 Plt Count 200 K/MM3 (134-434) 01/13/20 13:00 MPV 9.2 fl (7.5-11.1) 01/13/20 13:00 Sodium 142 mmol/L (136-145) 01/13/20 13:00 Potassium 4.2 mmol/L (3.5-5.1) 01/13/20 13:00 Chloride 107 mmol/L (98-107) 01/13/20 13:00 Carbon Dioxide 29 mmol/L (21-32) 01/13/20 13:00 Anion Gap 6 MMOL/L (8-16) L 01/13/20 13:00 BUN 15.6 mg/dL (7-18) 01/13/20 13:00 Creatinine 1.2 mg/dL (0.55-1.3) 01/13/20 13:00 Est GFR (CKD-EPI)AfAm 80.66 01/13/20 13:00 Est GFR (CKD-EPI)NonAf 69.59 01/13/20 13:00 Random Glucose 91 mg/dL (74-106) 01/13/20 13:00 Calcium 8.4 mg/dL (8.5-10.1) L 01/13/20 13:00 Total Bilirubin 0.2 mg/dL (0.2-1) 01/13/20 13:00 AST 9 U/L (15-37) L 01/13/20 13:00 ALT 15 U/L (13-61) 01/13/20 13:00 Alkaline Phosphatase 57 U/L (45-117) 01/13/20 13:00 Total Protein 6.4 g/dl (6.4-8.2) 01/13/20 13:00 Albumin 3.7 g/dl (3.4-5.0) 01/13/20 13:00 RPR Titer Nonreactive (NONREACTIVE) 01/14/20 07:30 lab noted - Treatment Hospital Course: Detox Protocol Followed, Detoxed Safely, Responded well, Discharged Condition Good, Rehab Referral Accepted Patient has Accepted a Rehab Referral to: [facility] - Medication Discharge Medications: Ambulatory Orders NK [No Known Home Medication] 01/13/20 - Diagnosis (1) Alcohol dependence with uncomplicated withdrawal Status: Acute (2) Opioid dependence with withdrawal Status: Acute (3) Psoriasis Status: Chronic (4) Nicotine dependence Status: Acute Qualifiers: Nicotine product type: cigarettes Substance use status: in withdrawal Qualified Code(s): F17.213 - Nicotine dependence, cigarettes, with withdrawal (5) Substance induced mood disorder Status: Suspected - AMA Did Patient Leave Against Medical Advice: No CIWA Score - CIWA Score Nausea/Vomitin-No Nausea/No Vomiting Muscle Tremors: 1-None Visible, but [place] Anxiety: 0-No Anxiety, at Ease Agitation: 0-Normal Activity Paroxysmal Sweats: No Perspiration Orientation: 0-Oriented Tacttile Disturbances: 0-None Auditory Disturbances: 0-None Visual Disturbances: 0-None Headache: 0-None Present CIWA-Ar Total Score: 1 COWS (PN) - Opiate Withdrawal Resting Pulse: 1= [place] 81-100 Sweatin= No chills or Flushing Restless Observation: 0= Sits Still Pupil Size: 0= Normal to Room Light Bone or Joint Aches: 0= None Runny Nose/ Eye Tearin= None GI Upset > 30mins: 0= None Tremor Observation of Outstretched Hands: 0= None Yawning Observation: 0= None Anxiety or Irritability: 1=Feels Anxious/Irritable Goose Flesh Skin: 0=Smooth Skin COWS Score: 2
== END 2020-01-18 11:55 | disposition other institution (70) | DRG 773 ==
LOC: YASAS 11:03 → Y3N 13:59
PROVIDERS: ADMIT Allergy & Immunology; ATTEND Allergy & Immunology
PROC: HZ2ZZZZ Detoxification Services for Substance Abuse Treatment (ICD-10-PCS; principal; 2020-01-12)
DX: F10.230 Alcohol dependence with withdrawal, uncomplicated (principal); F11.23 Opioid dependence with withdrawal; F14.20 Cocaine dependence, uncomplicated; F17.210 Nicotine dependence, cigarettes, uncomplicated; F19.24 Other psychoactive substance dependence with psychoactive substance-induced mood disorder; F41.9 Anxiety disorder, unspecified; G47.00 Insomnia, unspecified; L40.9 Psoriasis, unspecified; W07.XXXA Fall from chair, initial encounter; Y93.89 Activity, other specified; Y92.238 Other place in hospital as the place of occurrence of the external cause; Y99.8 Other external cause status
CPT/HCPCS: 36415; 80053; 85027; 86593; 93005; 93010; Q0162; Q2036

== ENCOUNTER 2020-01-18 12:13 | Inpatient (IN) | payer OTHER ==
--- NOTE | 2020-01-18 11:52 | HP ---
[facility]ARYL [facility]ARDO[facility] Rehab Assess/Revision - Admission History Admitted to Rehab from: [facility] Date of Admission to Rehab: 01/18/20 - Findings Detox History & Physical reviewed: Yes Concur with findings: Yes Comments/Additional Findings: transferred from detox to rehab admission as per protocol Inpatient Rehab Admission - Rehab Decision to Admit Inpatient rehab admission?: Yes - Initial Determination Are CD services needed?: Yes Free of communicable disease: Yes Not in need of hospitalization: Yes - Rehab Admission Criteria Previous failed treatment: Yes Poor recovery environment: Yes Comorbidities: Yes Lacks judgement: Yes Patient is meeting Inpatient Rehab admission criteria:: Yes
[~2020-01-18 12:13] MED LIST: LOPERAMIDE HCL 2 MG CAPSULE PO PRN; MAG HYDROX/AL HYDROX/SIMETH 30 ML UNIT-DOSE CUP PO PRN; MAGNESIUM CITRATE 300 ML BOTTLE PO PRN; MAGNESIUM HYDROX 2400MG/30ML ORAL SUSPENSION 30 ML CUP PO PRN; P-EPHED 60MG/TRIPROLIDI 2.5MG TABLET PO PRN; guaiFENesin 200 MG/10 ML 10 ML UNIT-DOSE CUPS PO PRN
--- NOTE | 2020-01-18 16:05 | PN ---
"[facility] Progress Note Note: Pt is a 49 y/o male with a hx of ODETTE-Heroin,alcohol transferred from [facility] this afternoon to [address] [place] [address]. Pt also completed detox on [address] [place] [address] today(01/13/20 to 01/18/20. Pt reports he was on Suboxone program with [facility] in the [place] but relapsed by using heroin and would like to restart to go back to [facility] after rehab. Pt is known to this program to be a Suboxone MAT patient as well. Primar care provider reported as Dr. Yousuf Garcia at [place], [place]. PMHx:Denies Psych Hx:Depression Confidential Drug Utilization Report Search Terms: fran dawson, 1970Search Date: 01/24/2020 17:14:42 PM The Drug Utilization Report below displays all of the controlled substance prescriptions, if any, that your patient has filled in the last twelve months. The information displayed on this report is compiled from pharmacy submissions to the Department, and accurately reflects the information as submitted by the pharmacies. This report was requested by: Maira Vick | Reference #: [id number] You have not added a MANJU number. Keeping your MANJU number(s) up to date on the My MANJU Numbers page will enable the separation of your prescriptions from others in the search results. Others' Prescriptions Patient Name: Fran Bryant Date: 1970 Address: [facility] [address] [address]Xcv: Male Rx Written Rx Dispensed Drug Quantity Days Supply Prescriber Name Payment Method Dispenser buprenorphine-naloxone 8-2 mg sl film 14 7 Yousuf Garcia MD [facility] buprenorphine-naloxone 8-2 mg sl film 30 15 Yousuf Garcia MD [facility] buprenorphine-naloxone 8-2 mg sl film 60 30 Lachelle Ball [facility] buprenorphine-naloxone 8-2 mg sl film 60 30 Yousuf Garcia MD [facility] buprenorphine-naloxone 8-2 mg sl film 60 30 Yousuf Garcia MD [facility] buprenorphine-naloxone 8-2 mg sl film 60 30 Yousuf Garcia MD [facility] buprenorphine-naloxone 8-2 mg sl film 30 15 Yousuf Garcia MD [facility] buprenorphine-naloxone 8-2 mg sl film 14 7 Yousuf Garcia MD [facility] Patient Name: Fran Bryant Date: 1970 Address: [address] [place], [place] [address]Wxz: Male Rx Written Rx Dispensed Drug Quantity Days Supply Prescriber Name Payment Method Dispenser buprenorphine-naloxone 8-2 mg sl film 60 30 BallLachelle V K [facility] #[id number] Patient Name: Fran Bryant Date: 1970 Address: [address] [place], [place] [address]Qgq: Male Rx Written Rx Dispensed Drug Quantity Days Supply Prescriber Name Payment Method Dispenser buprenorphine-naloxone 8-2 mg sl film 14 7 Maira Vick NP [facility] * - Drugs marked with an asterisk are compound drugs. If the compound drug is made up of more than one controlled substance, then each controlled substance will be a separate row in the table. Vital Signs - 24 hr 01/18/20 12:03 Temperature 97.3 F L Pulse Rate 84 Respiratory 18 Rate Blood Pressure 121/69 Alert o x 3 nad oob ambulating with steady gait extremities/skin:no edema/skin intact. A/P ODETTE s/p opiate detox,last methadone on 01/16/20 in detox [address] [place] [address] Suboxone MAT pt Requests to Restart Maintain safety increase po fluids F/u with pt to restart Suboxone."
[2020-01-18] MEDS: HYDROCORTISONE 1% TOPICAL CREAM 30 GM TUBE TP SCH ×3 (16:14→21:10)
[2020-01-18] MEDS: IBUPROFEN 400 MG TABLET (FP) PO PRN (17:40)
[2020-01-18] MEDS: NICOTINE POLACRILEX 2 MG GUM BUC PRN (17:41)
[2020-01-18] MEDS: THIAMINE HCL 100 MG TABLET (FP) PO SCH (21:10)
[2020-01-18] MEDS: MELATONIN 5 MG TABLETS PO SCH (21:10)
[2020-01-18] MEDS ORDERED: QUEtiapine FUMARATE 50 MG TABLET PO SCH (22:00)
[2020-01-19] MEDS: IBUPROFEN 400 MG TABLET (FP) PO PRN (07:21)
--- NOTE | 2020-01-19 08:25 | CONSULT ---
[facility] Psychiatric Consult - Data Date of interview: 01/19/20 Admission source: [facility] Identifying data: Patient is a 49 year old single male, father of two, unemployed, domiciled, and is supported with food stamps. This is one of multiple admissions for patient. Patient admitted to for alcohol, cocaine, and opiate dependence. Substance Abuse History: Substance & Tx. History. Hx Alcohol Use: Yes. Hx Substance Use: Yes. Substance Use Type: Alcohol, Cocaine, Heroin, Opiates. Hx Substance Use Treatment: Yes. - Substances abused. Alcohol. Substance route: Oral. Frequency: Daily. Amount used: 1 pint of vodka & 2 quart of beer. Age of first use: 15. Date of last use: 01/13/20. Heroin. Substance route: Inhalation. Frequency: Daily. Amount used: 1 bungle. Age of first use: 15. Date of last use: 01/12/20. Cocaine. Substance route: Inhalation. Frequency: Daily. Amount used: $20. Age of first use: 15. Date of last use: 01/11/20. Other. Other (specify): nicotine. Substance route: Smoking. Frequency: Daily. Amount used: 1ppd. Age of first use: 15 Medical History: Dyslipidemia Psychiatric History: Patient denies history of psychiatric hospitalizations and suicide attempts. Mr. Smith's first psychiatric contact was as a child due to restlessness, and difficulty focusing. He was diagnosed with ADHD and prescribed psychotropic medications. Mr. Smith last received outpatient psychiatric care at [facility] in 2016 and reports being prescribed suboxone and seroquel 200mg. Patient given seroquel 50mg for insomnia while in detox but stated that it was ineffective. At present patient reports difficulty sleeping. Physical/Sexual Abuse/Trauma History: denies. Mental Status Exam - Mental Status Exam Alert and Oriented to: Time, Place, Person Cognitive Function: Good Patient Appearance: Well Groomed Mood: Euthymic Affect: Appropriate Patient Behavior: Appropriate, Cooperative Speech Pattern: Clear, Appropriate Voice Loudness: Normal Thought Process: Goal Oriented Thought Disorder: Not Present Hallucinations: Denies Suicidal Ideation: Denies Homicidal Ideation: Denies Insight/Judgement: Poor Sleep: Poorly Appetite: Fair Muscle strength/Tone: Normal Gait/Station: Normal Psychiatric Findings - Problem List ([place] 1, 2,3) (1) Substance-induced sleep disorder Current Visit: Yes Status: Acute (2) Alcohol dependence Current Visit: Yes Status: Acute (3) Nicotine dependence Current Visit: Yes Status: Acute Qualifiers: Nicotine product type: cigarettes Substance use status: in withdrawal Qualified Code(s): F17.213 - Nicotine dependence, cigarettes, with withdrawal (4) Opioid dependence Current Visit: Yes Status: Acute (5) Cannabis dependence Current Visit: Yes Status: Chronic (6) Cocaine dependence Current Visit: Yes Status: Chronic - Initial Treatment Plan Initial Treatment Plan: Psychoeducation provided. Detoxification in progress. Will order Seroquel 100mg HS. Benefits and side effects discussed. Verbal consent given.
[2020-01-19] MEDS: NICOTINE POLACRILEX 2 MG GUM BUC PRN ×4 (08:46→20:39)
--- NOTE | 2020-01-19 10:31 | PN ---
[facility] COWS - Scale Resting Pulse: 0= [place] 80 or Below Sweatin= Chills/Flushing Restless Observation: 3= Extraneous Movement Pupil Size: 0= Normal to Room Light Bone or Joint Aches: 4=Acute Joint/Muscle Pain Runny Nose/ Eye Tearin= None GI Upset > 30mins: 0= None Tremor Observation of Outstretched Hands: 0= None Yawning Observation: 1= 1-2x During Session Anxiety or Irritability: 2=Irritable/Anxious Goose Flesh Skin: 0=Smooth Skin COWS Score: 11 S Progress Note (SOAP) Subjective: Pt is a 49 y/o male Objective: 01/19/20 10:30 Vital Signs - 24 hr 01/18/20 01/18/20 01/19/20 12:03 20:30 01:04 Temperature 97.3 F L Pulse Rate 84 Respiratory 18 16 Rate Blood Pressure 121/69 O2 Sat by Pulse 97 Oximetry (%) 01/19/20 01/19/20 03:30 08:04 Temperature 97.1 F L Pulse Rate 65 Respiratory 18 18 Rate Blood Pressure 119/73 O2 Sat by Pulse Oximetry (%) Assessment: Protracted w/s Pt requesting Suboxone MAT Restart Plan: UDS today for Suboxone restart
[2020-01-19] MEDS: hydrOXYzine PAMOATE 50 MG CAPSULE (FP) PO PRN (10:33)
[2020-01-19] MEDS: HYDROCORTISONE 1% TOPICAL CREAM 30 GM TUBE TP SCH ×4 (10:33→21:17)
[2020-01-19] MEDS: PRENATAL VITAMINS W/ FOLIC ACID TABLET (FP) PO SCH (10:33)
[2020-01-19] MEDS: NICOTINE 14 MG/24 HOURS TOPICAL PATCH TD SCH (10:34)
[2020-01-19] MEDS: METHOCARBAMOL 500 MG TABLET PO PRN ×2 (10:57→17:47)
[2020-01-19] MEDS: THIAMINE HCL 100 MG TABLET (FP) PO SCH (21:17)
[2020-01-19] MEDS: QUEtiapine FUMARATE 100 MG TABLET (FP) PO SCH (21:17)
[2020-01-19] MEDS: MELATONIN 5 MG TABLETS PO SCH (21:56)
[2020-01-20] MEDS: ACETAMINOPHEN 325 MG TABLET (FP) PO PRN (06:24)
[2020-01-20] MEDS: METHOCARBAMOL 500 MG TABLET PO PRN (06:25)
[2020-01-20] MEDS: HYDROCORTISONE 1% TOPICAL CREAM 30 GM TUBE TP SCH ×4 (09:46→21:16)
[2020-01-20] MEDS: PRENATAL VITAMINS W/ FOLIC ACID TABLET (FP) PO SCH (09:46)
[2020-01-20] MEDS: NICOTINE 14 MG/24 HOURS TOPICAL PATCH TD SCH (09:46)
[2020-01-20] MEDS ORDERED: BUPRENORPHINE/NALOXONE 2 MG/0.5 MG FILM PACKET SL ONE ×2 (09:47→13:13)
--- NOTE | 2020-01-20 09:53 | PN ---
[facility] COWS - Scale Resting Pulse: 1= [place] 81-100 Sweatin= Chills/Flushing Restless Observation: 3= Extraneous Movement Pupil Size: 0= Normal to Room Light Bone or Joint Aches: 4=Acute Joint/Muscle Pain Runny Nose/ Eye Tearin= None GI Upset > 30mins: 1= Stomach Cramp Tremor Observation of Outstretched Hands: 0= None Yawning Observation: 1= 1-2x During Session Anxiety or Irritability: 2=Irritable/Anxious Goose Flesh Skin: 0=Smooth Skin COWS Score: 13 [facility] Progress Note (SOAP) Subjective: Pt c/o discomfort from w/s-yawning,hot/cold chills,irritability and wants to start on the Suboxone. Pt is post detox with last day of methadone 5 mg po on 01/16/20. Objective: 01/20/20 09:51 Vital Signs - 24 hr 01/19/20 01/19/20 01/20/20 15:55 20:36 03:40 Temperature Pulse Rate Respiratory 18 Rate Blood Pressure O2 Sat by Pulse 94 L 97 Oximetry (%) 01/20/20 06:35 Temperature 97.8 F Pulse Rate 87 Respiratory 18 Rate Blood Pressure 122/69 O2 Sat by Pulse 95 Oximetry (%) URINE DRUG SCREEN RESULTS Drug Screen Negative No Urine Drug Screen Results BZO-Benzodiazepines,MTD-Methadone Assessment: 01/20/20 09:51 protracted w/s Suboxone MAT restart Plan: d/w pt will give Suboxone 2 mg/0.5 mg s/ x one now and adjust as re-evaluated. Pt is agreeable to poc
[2020-01-20] MEDS: NICOTINE POLACRILEX 2 MG GUM BUC PRN ×3 (10:18→18:04)
[2020-01-20] MEDS: MELATONIN 5 MG TABLETS PO SCH (21:15)
[2020-01-20] MEDS: QUEtiapine FUMARATE 100 MG TABLET (FP) PO SCH (21:15)
[2020-01-20] MEDS: THIAMINE HCL 100 MG TABLET (FP) PO SCH (21:16)
[2020-01-21] MEDS: BUPRENORPHINE/NALOXONE 4 MG/1 MG FILM PACKET SL SCH (09:24)
[2020-01-21] MEDS: HYDROCORTISONE 1% TOPICAL CREAM 30 GM TUBE TP SCH ×4 (09:24→21:23)
[2020-01-21] MEDS: NICOTINE 14 MG/24 HOURS TOPICAL PATCH TD SCH (09:25)
[2020-01-21] MEDS: PRENATAL VITAMINS W/ FOLIC ACID TABLET (FP) PO SCH (09:25)
[2020-01-21] MEDS: hydrOXYzine PAMOATE 50 MG CAPSULE (FP) PO PRN (10:34)
[2020-01-21] MEDS: NICOTINE POLACRILEX 2 MG GUM BUC PRN ×2 (14:46→17:31)
[2020-01-21] MEDS: METHOCARBAMOL 500 MG TABLET PO PRN (17:30)
[2020-01-21] MEDS: QUEtiapine FUMARATE 100 MG TABLET (FP) PO SCH (21:23)
[2020-01-21] MEDS: MELATONIN 5 MG TABLETS PO SCH (21:23)
[2020-01-21] MEDS: THIAMINE HCL 100 MG TABLET (FP) PO SCH (21:23)
[2020-01-22] MEDS: NICOTINE POLACRILEX 2 MG GUM BUC PRN ×4 (08:07→17:26)
[2020-01-22] MEDS: BUPRENORPHINE/NALOXONE 4 MG/1 MG FILM PACKET SL SCH (10:12)
[2020-01-22] MEDS: PRENATAL VITAMINS W/ FOLIC ACID TABLET (FP) PO SCH (10:12)
[2020-01-22] MEDS: NICOTINE 14 MG/24 HOURS TOPICAL PATCH TD SCH (10:12)
[2020-01-22] MEDS: HYDROCORTISONE 1% TOPICAL CREAM 30 GM TUBE TP SCH ×4 (10:13→21:53)
[2020-01-22] MEDS: hydrOXYzine PAMOATE 50 MG CAPSULE (FP) PO PRN (17:28)
[2020-01-22] MEDS: METHOCARBAMOL 500 MG TABLET PO PRN ×2 (17:28→21:53)
[2020-01-22] MEDS: QUEtiapine FUMARATE 100 MG TABLET (FP) PO SCH (21:53)
[2020-01-22] MEDS: MELATONIN 5 MG TABLETS PO SCH (21:53)
[2020-01-22] MEDS: THIAMINE HCL 100 MG TABLET (FP) PO SCH (21:53)
[2020-01-23] MEDS: PRENATAL VITAMINS W/ FOLIC ACID TABLET (FP) PO SCH (09:58)
[2020-01-23] MEDS: NICOTINE POLACRILEX 2 MG GUM BUC PRN ×4 (09:59→17:36)
[2020-01-23] MEDS: BUPRENORPHINE/NALOXONE 4 MG/1 MG FILM PACKET SL SCH (09:59)
[2020-01-23] MEDS: NICOTINE 14 MG/24 HOURS TOPICAL PATCH TD SCH (09:59)
[2020-01-23] MEDS: hydrOXYzine PAMOATE 50 MG CAPSULE (FP) PO PRN ×2 (10:00→21:35)
[2020-01-23] MEDS: HYDROCORTISONE 1% TOPICAL CREAM 30 GM TUBE TP SCH ×4 (10:01→21:35)
[2020-01-23] MEDS: QUEtiapine FUMARATE 100 MG TABLET (FP) PO SCH (21:35)
[2020-01-23] MEDS: METHOCARBAMOL 500 MG TABLET PO PRN (21:35)
[2020-01-23] MEDS: MELATONIN 5 MG TABLETS PO SCH (21:35)
[2020-01-23] MEDS: THIAMINE HCL 100 MG TABLET (FP) PO SCH (21:36)
[2020-01-24] MEDS: NICOTINE POLACRILEX 2 MG GUM BUC PRN ×4 (08:36→17:37)
[2020-01-24] MEDS: HYDROCORTISONE 1% TOPICAL CREAM 30 GM TUBE TP SCH ×4 (10:09→21:20)
[2020-01-24] MEDS: NICOTINE 14 MG/24 HOURS TOPICAL PATCH TD SCH (10:09)
[2020-01-24] MEDS: PRENATAL VITAMINS W/ FOLIC ACID TABLET (FP) PO SCH (10:09)
[2020-01-24] MEDS: BUPRENORPHINE/NALOXONE 4 MG/1 MG FILM PACKET SL SCH (10:16)
[2020-01-24] MEDS: METHOCARBAMOL 500 MG TABLET PO PRN (10:17)
[2020-01-24] MEDS: hydrOXYzine PAMOATE 50 MG CAPSULE (FP) PO PRN ×2 (10:17→21:21)
[2020-01-24] MEDS ORDERED: BUPRENORPHINE/NALOXONE 4 MG/1 MG FILM PACKET SL ONE (10:45)
--- NOTE | 2020-01-24 10:52 | PN ---
[facility] COWS - Scale Resting Pulse: 0= [place] 80 or Below Sweatin= Chills/Flushing Restless Observation: 1= Difficult to Sit Still Pupil Size: 0= Normal to Room Light Bone or Joint Aches: 2= Severe Diffuse Aches Runny Nose/ Eye Tearin= None GI Upset > 30mins: 0= None Tremor Observation of Outstretched Hands: 0= None Yawning Observation: 0= None Anxiety or Irritability: 2=Irritable/Anxious Goose Flesh Skin: 0=Smooth Skin COWS Score: 6 [facility] Progress Note (SOAP) Subjective: Patient c/o anxiety, restlessness and chills to staff. Patient currently on suboxone mat for opiod use dependence. Objective: 01/24/20 10:50 Laboratory Tests 01/19/20 07:30 HIV Ag/Ab Combo Qual Negative Vital Signs Temperature 97.6 F 01/23/20 07:34 Pulse Rate 68 01/24/20 08:23 Respiratory Rate 18 01/24/20 08:23 Blood Pressure 107/66 01/24/20 08:23 O2 Sat by Pulse Oximetry (%) 97 01/24/20 08:23 Assessment: 01/24/20 10:50 suboxone mat opiod use disorder Plan: will increase suboxone to 8mg sl daily continue to monitor clinically
[2020-01-24] MEDS: THIAMINE HCL 100 MG TABLET (FP) PO SCH (21:20)
[2020-01-24] MEDS: MELATONIN 5 MG TABLETS PO SCH (21:20)
[2020-01-24] MEDS: QUEtiapine FUMARATE 100 MG TABLET (FP) PO SCH (21:21)
[2020-01-25] MEDS ORDERED: COLLOIDAL OATMEAL 1 BAR EACH TP PRN (08:46)
--- NOTE | 2020-01-25 08:47 | PN ---
S Progress Note Note: Pt would like to increase dose of Suboxone- rec'd 8 mg yesterday> increased to 8mg in AM and 4mg in PM Pt c/o dry skin- would like Aveeno Soap- given
[2020-01-25] MEDS: NICOTINE 14 MG/24 HOURS TOPICAL PATCH TD SCH (09:46)
[2020-01-25] MEDS: BUPRENORPHINE/NALOXONE 8 MG/2 MG FILM PACKET SL SCH (09:49)
[2020-01-25] MEDS: hydrOXYzine PAMOATE 50 MG CAPSULE (FP) PO PRN ×2 (09:49→17:21)
[2020-01-25] MEDS: PRENATAL VITAMINS W/ FOLIC ACID TABLET (FP) PO SCH (09:49)
[2020-01-25] MEDS: HYDROCORTISONE 1% TOPICAL CREAM 30 GM TUBE TP SCH ×4 (09:50→21:05)
[2020-01-25] MEDS: NICOTINE POLACRILEX 2 MG GUM BUC PRN ×4 (09:54→17:23)
[2020-01-25] MEDS ORDERED: BUPRENORPHINE/NALOXONE 4 MG/1 MG FILM PACKET SL SCH (18:00)
[2020-01-25] MEDS: MELATONIN 5 MG TABLETS PO SCH (21:05)
[2020-01-25] MEDS: QUEtiapine FUMARATE 100 MG TABLET (FP) PO SCH (21:05)
[2020-01-25] MEDS: THIAMINE HCL 100 MG TABLET (FP) PO SCH (21:06)
[2020-01-26] MEDS: BUPRENORPHINE/NALOXONE 8 MG/2 MG FILM PACKET SL SCH ×2 (09:48→17:10)
[2020-01-26] MEDS: NICOTINE 14 MG/24 HOURS TOPICAL PATCH TD SCH (09:48)
[2020-01-26] MEDS: HYDROCORTISONE 1% TOPICAL CREAM 30 GM TUBE TP SCH ×4 (09:48→23:56)
[2020-01-26] MEDS: NICOTINE POLACRILEX 2 MG GUM BUC PRN ×3 (09:52→17:11)
[2020-01-26] MEDS: hydrOXYzine PAMOATE 50 MG CAPSULE (FP) PO PRN ×2 (09:52→21:35)
[2020-01-26] MEDS: PRENATAL VITAMINS W/ FOLIC ACID TABLET (FP) PO SCH (09:52)
--- NOTE | 2020-01-26 11:32 | PN ---
[facility] Progress Note Note: pt requests increase in suboxone dose to 16 mg sl total daily dose. Vital Signs - 24 hr 01/25/20 01/25/20 01/26/20 15:50 22:39 00:30 Temperature Pulse Rate Respiratory 16 Rate Blood Pressure O2 Sat by Pulse 97 97 Oximetry (%) 01/26/20 01/26/20 03:30 07:28 Temperature 97.9 F Pulse Rate 64 Respiratory 16 16 Rate Blood Pressure 125/78 O2 Sat by Pulse 97 Oximetry (%) Alert o x 3 nad oob ambulating with steady gait A/P Suboxone dose adjustment Increase Suboxone 8 mg/2mg sl BID as directed. increase po fluids
[2020-01-26] MEDS: METHOCARBAMOL 500 MG TABLET PO PRN ×2 (13:09→21:35)
[2020-01-26] MEDS: IBUPROFEN 400 MG TABLET (FP) PO PRN (13:09)
[2020-01-26] MEDS: THIAMINE HCL 100 MG TABLET (FP) PO SCH (21:35)
[2020-01-26] MEDS: MELATONIN 5 MG TABLETS PO SCH (21:35)
[2020-01-26] MEDS: QUEtiapine FUMARATE 100 MG TABLET (FP) PO SCH (21:35)
[2020-01-27] MEDS: BUPRENORPHINE/NALOXONE 8 MG/2 MG FILM PACKET SL SCH ×2 (10:31→17:33)
[2020-01-27] MEDS: IBUPROFEN 400 MG TABLET (FP) PO PRN ×2 (10:32→19:08)
[2020-01-27] MEDS: PRENATAL VITAMINS W/ FOLIC ACID TABLET (FP) PO SCH (10:32)
[2020-01-27] MEDS: hydrOXYzine PAMOATE 50 MG CAPSULE (FP) PO PRN ×2 (10:32→17:36)
[2020-01-27] MEDS: METHOCARBAMOL 500 MG TABLET PO PRN ×2 (10:32→19:09)
[2020-01-27] MEDS: NICOTINE 14 MG/24 HOURS TOPICAL PATCH TD SCH (10:33)
[2020-01-27] MEDS: HYDROCORTISONE 1% TOPICAL CREAM 30 GM TUBE TP SCH ×4 (10:33→21:53)
[2020-01-27] MEDS: NICOTINE POLACRILEX 2 MG GUM BUC PRN ×3 (10:35→19:09)
[2020-01-27] MEDS: ACETAMINOPHEN 325 MG TABLET (FP) PO PRN (21:51)
[2020-01-27] MEDS: QUEtiapine FUMARATE 100 MG TABLET (FP) PO SCH (21:52)
[2020-01-27] MEDS: THIAMINE HCL 100 MG TABLET (FP) PO SCH (21:53)
[2020-01-27] MEDS: MELATONIN 5 MG TABLETS PO SCH (21:53)
[2020-01-28] MEDS: METHOCARBAMOL 500 MG TABLET PO PRN ×2 (06:28→18:45)
[2020-01-28] MEDS: ACETAMINOPHEN 325 MG TABLET (FP) PO PRN ×2 (06:28→17:13)
[2020-01-28] MEDS: PRENATAL VITAMINS W/ FOLIC ACID TABLET (FP) PO SCH (11:22)
[2020-01-28] MEDS: NICOTINE 14 MG/24 HOURS TOPICAL PATCH TD SCH (11:23)
[2020-01-28] MEDS: HYDROCORTISONE 1% TOPICAL CREAM 30 GM TUBE TP SCH ×4 (11:23→21:02)
[2020-01-28] MEDS: IBUPROFEN 400 MG TABLET (FP) PO PRN (11:24)
[2020-01-28] MEDS: BUPRENORPHINE/NALOXONE 8 MG/2 MG FILM PACKET SL SCH ×2 (11:25→17:13)
[2020-01-28] MEDS: hydrOXYzine PAMOATE 50 MG CAPSULE (FP) PO PRN ×2 (11:26→18:46)
[2020-01-28] MEDS: NICOTINE POLACRILEX 2 MG GUM BUC PRN (12:32)
[2020-01-28] MEDS: THIAMINE HCL 100 MG TABLET (FP) PO SCH (21:02)
[2020-01-28] MEDS: QUEtiapine FUMARATE 100 MG TABLET (FP) PO SCH (21:03)
[2020-01-28] MEDS: MELATONIN 5 MG TABLETS PO SCH (21:03)
[2020-01-29] MEDS: METHOCARBAMOL 500 MG TABLET PO PRN (06:24)
[2020-01-29] MEDS: IBUPROFEN 400 MG TABLET (FP) PO PRN ×2 (06:24→16:19)
[2020-01-29] MEDS: HYDROCORTISONE 1% TOPICAL CREAM 30 GM TUBE TP SCH ×4 (10:03→21:50)
[2020-01-29] MEDS: NICOTINE 14 MG/24 HOURS TOPICAL PATCH TD SCH (10:03)
[2020-01-29] MEDS: BUPRENORPHINE/NALOXONE 8 MG/2 MG FILM PACKET SL SCH ×2 (10:03→17:25)
[2020-01-29] MEDS: PRENATAL VITAMINS W/ FOLIC ACID TABLET (FP) PO SCH (10:03)
[2020-01-29] MEDS: hydrOXYzine PAMOATE 50 MG CAPSULE (FP) PO PRN ×2 (10:05→17:25)
[2020-01-29] MEDS: NICOTINE POLACRILEX 2 MG GUM BUC PRN (10:05)
[2020-01-29] MEDS: QUEtiapine FUMARATE 100 MG TABLET (FP) PO SCH (21:47)
[2020-01-29] MEDS: MELATONIN 5 MG TABLETS PO SCH (21:47)
[2020-01-29] MEDS: THIAMINE HCL 100 MG TABLET (FP) PO SCH (21:48)
[2020-01-29] MEDS: ACETAMINOPHEN 325 MG TABLET (FP) PO PRN (21:49)
[2020-01-30] MEDS: IBUPROFEN 400 MG TABLET (FP) PO PRN (06:40)
[2020-01-30] MEDS: BUPRENORPHINE/NALOXONE 8 MG/2 MG FILM PACKET SL SCH ×2 (10:20→17:20)
[2020-01-30] MEDS: PRENATAL VITAMINS W/ FOLIC ACID TABLET (FP) PO SCH (10:20)
[2020-01-30] MEDS: hydrOXYzine PAMOATE 50 MG CAPSULE (FP) PO PRN ×2 (10:22→17:21)
[2020-01-30] MEDS: METHOCARBAMOL 500 MG TABLET PO PRN ×2 (10:23→17:23)
[2020-01-30] MEDS: NICOTINE 14 MG/24 HOURS TOPICAL PATCH TD SCH (10:23)
[2020-01-30] MEDS: HYDROCORTISONE 1% TOPICAL CREAM 30 GM TUBE TP SCH ×4 (10:24→21:40)
[2020-01-30] MEDS: QUEtiapine FUMARATE 100 MG TABLET (FP) PO SCH (21:39)
[2020-01-30] MEDS: THIAMINE HCL 100 MG TABLET (FP) PO SCH (21:39)
[2020-01-30] MEDS: ACETAMINOPHEN 325 MG TABLET (FP) PO PRN (21:39)
[2020-01-30] MEDS: MELATONIN 5 MG TABLETS PO SCH (21:39)
[2020-01-31 07:36] VITALS: BP 103/57
[2020-01-31] MEDS: BUPRENORPHINE/NALOXONE 8 MG/2 MG FILM PACKET SL SCH ×2 (09:09→17:15)
[2020-01-31] MEDS: HYDROCORTISONE 1% TOPICAL CREAM 30 GM TUBE TP SCH ×4 (09:09→22:41)
[2020-01-31] MEDS: PRENATAL VITAMINS W/ FOLIC ACID TABLET (FP) PO SCH (09:09)
[2020-01-31] MEDS: hydrOXYzine PAMOATE 50 MG CAPSULE (FP) PO PRN ×3 (09:09→21:56)
[2020-01-31] MEDS: NICOTINE 14 MG/24 HOURS TOPICAL PATCH TD SCH (09:09)
--- NOTE | 2020-01-31 10:21 | PN ---
[facility] Progress Note Note: Patient is scheduled for discharge tomorrow. Script for 30 days supply of Seroquel 100 mg/hs will be electronically transmitted to [facility], [address] [place] [id number]
--- NOTE | 2020-01-31 14:22 | DS ---
[facility] Rehab Discharge Summary - [facility] Rehab Discharge Summary Admission Date: 01/18/20 Discharge Date: 02/01/20 - History Present History: Alcohol dependence, Cocaine dependence, Opioid dependence Additional Comments: Pt is a 49 y/o male with a hx of ODETTE admitted to rehab and scheduled to discharge on 02/01/20. Pt ws on Suboxone MAT with [facility] before relapsed into heroin use. Pt was restarted here in rehab and has been referred back to [facility] for CD aftercare/Suboxone-MAT. Pt will seek primary care at [facility] after discharge as needed. Pertinent Past History: Hx Psoriasis - Discharge Physical Exam Vital Signs: Vital Signs Temperature 97.9 F 01/31/20 07:35 Pulse Rate 58 L 01/31/20 07:35 Respiratory Rate 18 01/31/20 07:35 Blood Pressure 103/57 L 01/31/20 07:35 O2 Sat by Pulse Oximetry (%) 97 01/31/20 06:00 Alert o x 3,denies s/h/i nad oob ambulating with steady gait cardiac:s1 s2,rrr lungs:cta,nallely. abdomen:soft,nt,nd,+bs extremities/skin:no edema,skin intact. Pertinent Admission Physical Exam Findings: Laboratory Tests 01/19/20 07:30 HIV Ag/Ab Combo Qual Negative - Treatment Discharge Condition: Discharge condition good Hospital Course: CD aftercare referral accepted Rehabilitated safely Attended and participated in groups and individual sessions. - Medication Discharge Medications: Ambulatory Orders Buprenorphine/Naloxone [Suboxone 8Mg/2Mg Sl Film -] 1 each SL BID 7 Days #14 packet MDD 2 01/31/20 Quetiapine Fumarate [Seroquel -] 100 mg PO HS #30 tablet 01/31/20 - Medication-Assisted Treatment (MAT) Medication-Assisted Treatment (MAT): Yes Medication Prescribed: Suboxone MAT Follow-up Referral: [facility] program [address] [place] [address] - Discharge Instructions Diet, activity, other medical instructions: Diet:Regular Activity: oob ad kiah Other medical instructions:Follow up with [facility] for Suboxone MAT Follow up with primary care provider for medical management at [facility] clinic 1-2 weeks after discharge. - Diagnosis (1) Alcohol dependence Status: Chronic (2) Encounter for monitoring Suboxone maintenance therapy Status: Chronic (3) Opioid dependence Status: Chronic (4) Cocaine dependence Status: Chronic (5) Non-compliance Status: Chronic (6) Psoriasis Status: Chronic - Follow-up Referral Minutes to complete discharge: 30 - AMA Did Patient Leave Against Medical Advice: No
[2020-01-31] MEDS: METHOCARBAMOL 500 MG TABLET PO PRN ×2 (17:15→21:56)
[2020-01-31] MEDS: MELATONIN 5 MG TABLETS PO SCH (21:55)
[2020-01-31] MEDS: QUEtiapine FUMARATE 100 MG TABLET (FP) PO SCH (21:55)
[2020-01-31] MEDS: THIAMINE HCL 100 MG TABLET (FP) PO SCH (21:56)
[2020-02-01 08:20] VITALS: PULSE 60; TEMP 97.5
[2020-02-01] MEDS: BUPRENORPHINE/NALOXONE 8 MG/2 MG FILM PACKET SL SCH (09:11)
[2020-02-01] MEDS: hydrOXYzine PAMOATE 50 MG CAPSULE (FP) PO PRN (09:12)
[2020-02-01] MEDS: HYDROCORTISONE 1% TOPICAL CREAM 30 GM TUBE TP SCH (09:12)
[2020-02-01] MEDS: NICOTINE 14 MG/24 HOURS TOPICAL PATCH TD SCH (09:12)
[2020-02-01] MEDS: PRENATAL VITAMINS W/ FOLIC ACID TABLET (FP) PO SCH (09:12)
== END 2020-02-01 10:05 | disposition home or self-care (01) | DRG 772 ==
LOC: YASAS 12:13 → Y3W 12:14 → Y5N 14:54
PROVIDERS: ADMIT Allergy & Immunology; ATTEND Allergy & Immunology
PROC: HZ42ZZZ Group Counseling for Substance Abuse Treatment, Cognitive-Behavioral (ICD-10-PCS; principal; 2020-01-18)
DX: F11.20 Opioid dependence, uncomplicated (principal); F10.20 Alcohol dependence, uncomplicated; F14.20 Cocaine dependence, uncomplicated; F12.20 Cannabis dependence, uncomplicated; F17.210 Nicotine dependence, cigarettes, uncomplicated; F19.282 Other psychoactive substance dependence with psychoactive substance-induced sleep disorder; F90.9 Attention-deficit hyperactivity disorder, unspecified type; F32.9 Major depressive disorder, single episode, unspecified; E78.5 Hyperlipidemia, unspecified; L40.9 Psoriasis, unspecified; L85.3 Xerosis cutis; Z51.81 Encounter for therapeutic drug level monitoring; Z79.899 Other long term (current) drug therapy; Z91.19 Patient's noncompliance with other medical treatment and regimen
CPT/HCPCS: 87389